=== PATIENT | male | born 1970 | race Caucasian/White ===

== ENCOUNTER 2017-11-04 22:01 | Observation (INO) ==
[2017-11-04 22:34] LABS: Basophils # 0.1 K/mm3 (0-0.2); Basophils % 0.5 % (0.1-2.0); Eosinophils # 0.4 K/mm3 (0.0-0.4); Hematocrit 52.2 % (42.0-52.0); Hemoglobin 16.1 g/dL (14.1-18.0); Lymphocytes # 3.7 K/mm3 (0.7-4.5); Lymphocytes % 17.1 K/mm3 (10-50); Mean Corpuscular HGB Conc 30.8 g/dL (31.8-35.4); Mean Corpuscular Hemoglobin 29.2 pg (27.0-31.2); Mean Corpuscular Volume 94.6 fl (80-94); Mean Platelet Volume 7.8 fl (7.4-10.4); Monocytes # 0.7 K/mm3 (0.1-1.0); Monocytes % 3.4 % (1.7-9.3); Neutrophils # 16.4 K/mm3 (1.8-7.8); Neutrophils % 76.9 % (37.0-80.0); Platelet Count 435 K/mm3 (142-424); Red Blood Count 5.52 M/mm3 (4.60-6.20); Red Cell Distribution Width 12.6 % (11.5-17.5)
[2017-11-04 22:38] LABS: White Blood Count 21.3 K/mm3 (4.8-10.8)
[2017-11-04 22:45] LABS: Lymphocytes % 12 % (10-50); Monocytes % 1 % (2-9); Neutrophils % 78 % (42-76); Total Cells Counted 100
[2017-11-04 22:46] LABS: Albumin Level 3.8 gm/dL (3.4-5.0); Albumin/Globulin Ratio 0.7 (1.1-1.8); Anion Gap 13.3 mEq/L (5-15); Bilirubin,Total 0.2 mg/dL (0.2-1.0); Calcium 9.8 mg/dL (8.5-10.1); Globulin 5.3 gm/dl (1.3-3.2); Potassium 4.3 mmoL/L (3.5-5.1); Rouleaux 1+; Total Protein,Serum 9.1 gm/dL (6.4-8.2)
--- NOTE | 2017-11-04 23:44 | Emergency Department Note ---
ED Disposition Clinical Impression: IVDU (intravenous drug user) Abscess of skin or subcutaneous tissue Qualifiers: Site of cutaneous abscess: extremity Site of cutaneous abscess of extremity: upper extremity Laterality: right Qualified Code(s): L02.413 - Cutaneous abscess of right upper limb Disposition: Admitted as Observation Condition on Discharge: Good Instructions: DI for Skin Abscess - Critical Care Critical Care Time: No Attestation: On 11/04/17, the high probability of a clinically significant, sudden or life threatening deterioration of the following system(s) required my full and direct attention, intervention and personal management. The time I documented below is in addition to time spent performing reported procedures but includes the following listed in this critical care notation. Medical Decision Making - Medical Records Medical records reviewed: Yes: I reviewed the patient's medical records. - Jeremy Inquiry Pt receiving controlled substance: No Vital Signs: 11/04/17 22:10 Temperature 98.7 F Temperature Source Oral Pulse Rate [Right Radial] 103 H Respiratory Rate 20 Blood Pressure [Right Arm] 122/83 Blood Pressure Mean [Right Arm] 96 02 Sat by Pulse Oximetry 99 - Lab Data Lab results reviewed: Yes: I reviewed the patient's lab results. Lab Results 11/04/17 22:20: WBC 21.3 H*, RBC 5.52, Hgb 16.1, Hct 52.2 H, MCV 94.6 H, MCH 29.2, MCHC 30.8 L, RDW 12.6, Plt Count 435 H, MPV 7.8, Neut % (Auto) 76.9, Lymph % (Auto) 17.1, [place] % (Auto) 3.4, Eos % (Auto) 2.0, Baso % (Auto) 0.5, Neut # (Auto) 16.4 H, Lymph # (Auto) 3.7, [place] # (Auto) 0.7, Eos # (Auto) 0.4, Baso # (Auto) 0.1, Total Counted 100, Neutrophils % (Manual) 78 H, Band Neutrophils % 9.0 H, Lymphocytes % (Manual) 12, Monocytes % (Manual) 1 L, Platelet Estimate Normal, Rouleaux 1+ 11/04/17 22:20: Sodium 141, Potassium 4.3, Chloride 103, Carbon Dioxide 29, Anion Gap 13.3, BUN 9, Creatinine 0.89, Estimated Creat Clear 89, Estimated GFR 92, Est GFR ( Amer) 111, Glucose 105, Calcium 9.8, Total Bilirubin 0.2, AST 33, ALT 39, Alkaline Phosphatase 154 H, Total Protein 9.1 H, Albumin 3.8, Globulin 5.3 H, Albumin/Globulin Ratio 0.7 L 11/04/17 22:20: Lactic Acid 4.1 H 11/04/17 22:20: C-Reactive Protein 1.2 H Result diagrams: 11/04/17 22:20 11/04/17 22:20 Orders (Tests/Meds): ED MEDICATIONS Generic Name Dose Route Start Last Admin Trade Name Freq PRN Reason Stop Dose Admin Vancomycin HCl 1,250 mg/ 250 mls @ 125 mls/hr 11/05/17 00:12 Sodium Chloride IV 11/05/17 00:13 ONCE ONE Protocol Discontinued Medications Generic Name Dose Route Start Last Admin Trade Name Freq PRN Reason Stop Dose Admin Sodium Chloride 1,000 mls @ 999 mls/hr 11/04/17 22:15 11/04/17 22:17 Sod Chlor 0.9% 1000ml Bag IV 11/04/17 23:15 999 mls/hr .[id number] ONEIL Administration ORDERS Category Date Time Status ESR [Erythrocyte Sedimentation Rate] Stat Lab 11/04/17 22:20 Received Blood Culture Stat Micro 11/04/17 22:20 Received - Physician Consults Physician Consulted: cece Reason -: Admission Skin/Abscess/FB HPI - General Chief complaint: Skin/Abscess/Foreign Body Stated complaint: Right arm swollen Time Seen by Provider: 11/04/17 22:20 Mode of Arrival: Family Vehicle Limitations: No Limitations Description of Symptoms (Recalled from ER Triage Doc. by RN): pt shot up 3 days ago with percocets, pt now having swelling and pain in right forearm at site that began swelling 2 days ago. - History of Present Illness HPI narrative: swelling tenderness rt forearm over the last few days - hx of iv drug use MD complaint: abscess/boil Onset (ago): day(s) Tetanus up to date: unsure Location: RUE Severity: moderate Quality: dull Context: IVDA Associated symptoms: chills, myalgias Treatments prior to arrival: none - Related Data Home Medications Medication Instructions Recorded Confirmed No Known Home Medications 11/04/17 11/04/17 Allergies Allergy/AdvReac Type Severity Reaction Status Date / Time No Known Allergies Allergy Unverified 05/15/17 15:04 [facility] History I have reviewed the patient's past medical history: Yes Medical History: Denies:: Cancer, Diabetes Mellitus Type 1, Diabetes Mellitus Type 2, MRSA Amputation: No Fractures: No - Social History Smoking Status: Current every day smoker Alcohol Intake: never Substance Use Type: opiates Last Used Substance: days (ago) - Psychiatric History Expresses thoughts of harming self/others: None Suicide Plan Description: No Plan ROS Obtained: Yes All systems reviewed & no additional complaints - Constitutional Constitutional: Denies fever(s) - Eyes Eyes: Denies change in vision - ENT Ears, Nose, Mouth, and Throat: Denies sore throat - Cardiovascular Cardiovascular: Denies chest pain - Respiratory Respiratory: No cough - Gastrointestinal Gastrointestingal: Denies: abdominal pain - Genitourinary Male Genitourinary: Denies flank pain, Denies hematuria - Musculoskeletal Musculoskeletal: Denies joint pain, Denies joint swelling - Integumentary/Breasts Skin/Breast: Reports boil - Neurologic Neurologic: Denies headache(s), Denies seizure-like activity Physical Exam - General General appearance: alert, in no apparent distress - Head Head exam: normocephalic - Eye Eye exam: Present: PERRL, EOMI - ENT ENT exam: Present: mucous membranes moist - Neck Neck exam: Present: trachea midline - Respiratory Respiratory exam: Absent: respiratory distress - Cardiovascular Cardiovascular exam: Present: regular rate, systolic murmur - Abdominal Exam Abdominal exam: Present: soft - Neurological Exam Neurological exam: Present: alert, oriented X3, CN II-XII intact - Psychiatric Psychiatric exam: Present: normal affect - Skin Skin exam: Present: other (tender area rt forearm)
[2017-11-05 06:45] LABS: Basophils # 0.1 K/mm3 (0-0.2); Eosinophils # 0.5 K/mm3 (0.0-0.4); Mean Platelet Volume 8.1 fl (7.4-10.4); Monocytes # 0.8 K/mm3 (0.1-1.0); Monocytes % 4.4 % (1.7-9.3)
[2017-11-05 06:50] LABS: Basophils % 0.5 % (0.1-2.0); Eosinophils % 2.5 % (0.1-12.0); Lymphocytes # 3.6 K/mm3 (0.7-4.5); Lymphocytes % 19.7 K/mm3 (10-50); Mean Corpuscular HGB Conc 31.4 g/dL (31.8-35.4); Mean Corpuscular Hemoglobin 29.7 pg (27.0-31.2); Mean Corpuscular Volume 94.4 fl (80-94); Neutrophils # 13.4 K/mm3 (1.8-7.8); Neutrophils % 72.9 % (37.0-80.0); Platelet Count 328 K/mm3 (142-424); Red Blood Count 4.45 M/mm3 (4.60-6.20); Red Cell Distribution Width 12.8 % (11.5-17.5); White Blood Count 18.3 K/mm3 (4.8-10.8)
[2017-11-05 06:51] LABS: Hemoglobin 13.2 g/dL (14.1-18.0)
[2017-11-05 07:12] LABS: Calcium 8.6 mg/dL (8.5-10.1)
--- NOTE | 2017-11-05 07:13 | History & Physical Report ---
*Admission Date: 11/05/17 *Chief complaint: Right arm pain *History of present illness: 47-year-old male with admitting only injects heroin presented to the emergency department with pain and swelling in the right forearm. Patient was diagnosed with cellulitis and abscess of the forearm and has been admitted for IV antibiotics and surgical consultation. [facility] History I have reviewed the patient's past medical history: Yes Medical History: Denies:: Cancer, Diabetes Mellitus Type 1, Diabetes Mellitus Type 2, MRSA Other Medical History: Reports: Arthritis Other Surgeries: Yes: Other (L finger/hand surgery) Amputation: No Fractures: No - *Social History Educational Level: Completed High School Smoking Status: Current every day smoker Tobacco Type: cigarettes # Packs/Day (cigarettes): 1 #Yrs smoked (if former smoker): 31 Alcohol Intake: never Substance Use Type: opiates, painkillers, IV drugs Last Used Substance: days (ago) Occupational Status: employed Housing: house Household Members: none - Psychiatric History Expresses thoughts of harming self/others: None Suicide Plan Description: No Plan *Family Hx:: Asthma, Cancer Review of Systems - Review of Systems Review of systems:: pertinent systems reviewed and negative unless documented below - Constitutional Denies anorexia, Denies body ache(s), Denies chills, Denies excessive sweating, Denies fever(s) - *Cardiovascular Denies chest pain, Denies chest pain at rest, Denies chest pain with activity - *Respiratory Denies change in phlegm color, Denies chest congestion, Denies cough - *Neurologic Denies headache(s), Denies seizure-like activity Meds Home Medications Medication Instructions Recorded Confirmed Type No Known Home Medications 11/04/17 11/04/17 History Allergies Allergy/AdvReac Type Severity Reaction Status Date / Time No Known Allergies Allergy Unverified 05/15/17 15:04 Exam Vital signs and Labs for Last 24 Hours: Temp Pulse Resp BP Pulse Ox 98.1 F 79 18 103/62 99 11/05/17 04:08 11/05/17 04:08 11/05/17 04:08 11/05/17 04:08 11/05/17 04:08 Laboratory Results - last 24 hr 11/04/17 22:20: WBC 21.3 H*, RBC 5.52, Hgb 16.1, Hct 52.2 H, MCV 94.6 H, MCH 29.2, MCHC 30.8 L, RDW 12.6, Plt Count 435 H, MPV 7.8, Neut % (Auto) 76.9, Lymph % (Auto) 17.1, [place] % (Auto) 3.4, Eos % (Auto) 2.0, Baso % (Auto) 0.5, Neut # (Auto) 16.4 H, Lymph # (Auto) 3.7, [place] # (Auto) 0.7, Eos # (Auto) 0.4, Baso # (Auto) 0.1, Total Counted 100, Neutrophils % (Manual) 78 H, Band Neutrophils % 9.0 H, Lymphocytes % (Manual) 12, Monocytes % (Manual) 1 L, Platelet Estimate Normal, Rouleaux 1+ 11/04/17 22:20: Sodium 141, Potassium 4.3, Chloride 103, Carbon Dioxide 29, Anion Gap 13.3, BUN 9, Creatinine 0.89, Estimated Creat Clear 89, Estimated GFR 92, Est GFR ( Amer) 111, Glucose 105, Calcium 9.8, Total Bilirubin 0.2, AST 33, ALT 39, Alkaline Phosphatase 154 H, Total Protein 9.1 H, Albumin 3.8, Globulin 5.3 H, Albumin/Globulin Ratio 0.7 L 11/04/17 22:20: Lactic Acid 4.1 H 11/04/17 22:20: ESR 35 H 11/04/17 22:20: C-Reactive Protein 1.2 H 11/05/17 02:40: Lactic Acid Fup @ 4Hr 0.6 11/05/17 06:16: Sodium 139, Potassium 4.0, Chloride 107, Carbon Dioxide 26, Anion Gap 10.0, BUN 10, Creatinine 0.77, Estimated Creat Clear 92, Estimated GFR 108, Est GFR ( Amer) 131, Glucose 102 11/05/17 06:16: WBC 18.3 H, RBC 4.45 L, Hgb 13.2 L D, Hct 42.0, MCV 94.4 H, MCH 29.7, MCHC 31.4 L, RDW 12.8, Plt Count 328, MPV 8.1, Neut % (Auto) 72.9, Lymph % (Auto) 19.7, [place] % (Auto) 4.4, Eos % (Auto) 2.5, Baso % (Auto) 0.5, Neut # ( Auto) 13.4 H, Lymph # (Auto) 3.6, [place] # (Auto) 0.8, Eos # (Auto) 0.5 H, Baso # (Auto) 0.1 I & O for Last 24 hours: Intake & Output 11/02/17 11/03/17 11/04/17 11/05/17 11:59 11:59 11:59 11:59 Intake Total 1556 / 1556 Output Total 600 / 600 Balance 956 / 956 Weight 121 lb 3.997 oz Narrative: He is in no distress. Lungs are clear to auscultation. Heart has a regular rate and rhythm. On the anterior right forearm there is a tense, fluctuant, tender mass that starts in the medial proximal forearm and extends to the medial elbow. There is very little erythema of the skin H&P: Result - Labs Labs: Short CBC 11/04/17 11/05/17 Range/Units 22:20 06:16 WBC 21.3 H* 18.3 H (4.8-10.8) K/mm3 Hgb 16.1 13.2 L D (14.1-18.0) g/dL Hct 52.2 H 42.0 (42.0-52.0) % Plt Count 435 H 328 (142-424) K/mm3 BMP 11/04/17 11/05/17 22:20 06:16 Sodium 141 139 Potassium 4.3 4.0 Chloride 103 107 Carbon Dioxide 29 26 BUN 9 10 Creatinine 0.89 0.77 Glucose 105 102 Calcium 9.8 Liver Function 11/04/17 Range/Units 22:20 Total Bilirubin 0.2 (0.2-1.0) mg/dL AST 33 (15-37) U/L ALT 39 (12-78) U/L Alkaline Phosphatase 154 H (46-116) U/L Albumin 3.8 (3.4-5.0) gm/dL Assessment and Plan (1) Abscess of forearm, right Current visit: Yes Status: Acute Category: Medical Code(s): L02.413 - Cutaneous abscess of right upper limb (2) IVDU (intravenous drug user) Current visit: Yes Status: Acute Category: Social Hx Code(s): F19.90 - Other psychoactive substance use, unspecified, uncomplicated - Assessment and plan all Dx Assessment and Plan for all problems:: Patient was started on vancomycin and will continue this. Surgical consultation for I&D.
--- NOTE | 2017-11-05 07:29 | Pharmacy Consult Notes ---
[facility] Pharmacy VTE Monitoring - Patient Demographics Admission date: 11/04/17 Report Date: 11/05/17 Time: 07:28 Allergies/Adverse Reactions: Patient Allergies No Known Allergies Allergy (Unverified 05/15/17 15:04) Height: 1.7 m Weight: 54.998 kg Patient Problems: Current Active Problems Abscess of skin or subcutaneous tissue (Acute) IVDU (intravenous drug user) (Acute) Abscess of forearm, right (Acute) - VTE Risk Labs: VTE Related Lab Results Hgb 13.2 g/dL (14.1-18.0) L D 11/05/17 06:16 Hct 42.0 % (42.0-52.0) 11/05/17 06:16 Plt Count 328 K/mm3 (142-424) 11/05/17 06:16 BUN 10 mg/dL (7-18) 11/05/17 06:16 Creatinine 0.77 mg/dL (0.70-1.30) 11/05/17 06:16 Estimated Creat Clear 92 mL/min (0-300) 11/05/17 06:16 Was VTE Risk Assessment Performed: Yes VTE Score: 3 VTE Risk Level: Low Risk - Prophylaxis VTE Prophylaxis Ordered?: Yes Types of VTE Prophylaxis: TEDS Knee High Location of Applied Device: Bilateral Lower Extremeties - VTE Diagnosis Confirmed Treatment or plan recommended: Continue Current Treatment
--- NOTE | 2017-11-05 08:36 | Consult Report ---
*Admission Date: 11/04/17 *Chief complaint: Right arm pain *History of present illness: 47-year-old male with admittedly injects heroin presented to the emergency department with pain and swelling in the right forearm. Patient was diagnosed with cellulitis and abscess of the forearm and has been admitted for IV antibiotics and surgical consultation. He has been present about 3 or 4 days. Denies any drainage. Review of Systems - Review of Systems Review of systems:: pertinent systems reviewed and negative unless documented below - *Neurologic Denies headache(s), Denies seizure-like activity [facility] History Medical History: Denies:: Cancer, Diabetes Mellitus Type 1, Diabetes Mellitus Type 2, MRSA Other Medical History: Reports: Arthritis Other Surgeries: Yes: Other (L finger/hand surgery) Amputation: No Fractures: No - *Social History Educational Level: Completed High School Smoking Status: Current every day smoker Tobacco Type: cigarettes # Packs/Day (cigarettes): 1 #Yrs smoked (if former smoker): 31 Alcohol Intake: never Substance Use Type: opiates, painkillers, IV drugs Last Used Substance: days (ago) Occupational Status: employed Housing: house Household Members: none - Psychiatric History Expresses thoughts of harming self/others: None Suicide Plan Description: No Plan *Family Hx:: Asthma, Cancer Meds Home Medications Medication Instructions Recorded Confirmed Type No Known Home Medications 11/05/17 11/05/17 History Allergies Allergy/AdvReac Type Severity Reaction Status Date / Time No Known Allergies Allergy Unverified 05/15/17 15:04 Exam Vital signs and Labs for Last 24 Hours: Temp Pulse Resp BP Pulse Ox 98.0 F 48 L 16 105/56 98 11/05/17 07:55 11/05/17 07:55 11/05/17 07:55 11/05/17 07:55 11/05/17 07:55 Laboratory Results - last 24 hr 11/04/17 22:20: WBC 21.3 H*, RBC 5.52, Hgb 16.1, Hct 52.2 H, MCV 94.6 H, MCH 29.2, MCHC 30.8 L, RDW 12.6, Plt Count 435 H, MPV 7.8, Neut % (Auto) 76.9, Lymph % (Auto) 17.1, [place] % (Auto) 3.4, Eos % (Auto) 2.0, Baso % (Auto) 0.5, Neut # (Auto) 16.4 H, Lymph # (Auto) 3.7, [place] # (Auto) 0.7, Eos # (Auto) 0.4, Baso # (Auto) 0.1, Total Counted 100, Neutrophils % (Manual) 78 H, Band Neutrophils % 9.0 H, Lymphocytes % (Manual) 12, Monocytes % (Manual) 1 L, Platelet Estimate Normal, Rouleaux 1+ 11/04/17 22:20: Sodium 141, Potassium 4.3, Chloride 103, Carbon Dioxide 29, Anion Gap 13.3, BUN 9, Creatinine 0.89, Estimated Creat Clear 89, Estimated GFR 92, Est GFR ( Amer) 111, Glucose 105, Calcium 9.8, Total Bilirubin 0.2, AST 33, ALT 39, Alkaline Phosphatase 154 H, Total Protein 9.1 H, Albumin 3.8, Globulin 5.3 H, Albumin/Globulin Ratio 0.7 L 11/04/17 22:20: Lactic Acid 4.1 H 11/04/17 22:20: ESR 35 H 11/04/17 22:20: C-Reactive Protein 1.2 H 11/05/17 02:40: Lactic Acid Fup @ 4Hr 0.6 11/05/17 06:16: Sodium 139, Potassium 4.0, Chloride 107, Carbon Dioxide 26, Anion Gap 10.0, BUN 10, Creatinine 0.77, Estimated Creat Clear 92, Estimated GFR 108, Est GFR ( Amer) 131, Glucose 102, Calcium 8.6 D 11/05/17 06:16: WBC 18.3 H, RBC 4.45 L, Hgb 13.2 L D, Hct 42.0, MCV 94.4 H, MCH 29.7, MCHC 31.4 L, RDW 12.8, Plt Count 328, MPV 8.1, Neut % (Auto) 72.9, Lymph % (Auto) 19.7, [place] % (Auto) 4.4, Eos % (Auto) 2.5, Baso % (Auto) 0.5, Neut # ( Auto) 13.4 H, Lymph # (Auto) 3.6, [place] # (Auto) 0.8, Eos # (Auto) 0.5 H, Baso # (Auto) 0.1 I & O for Last 24 hours: Intake & Output 11/02/17 11/03/17 11/04/17 11/05/17 11:59 11:59 11:59 11:59 Intake Total 1556 / 1556 Output Total 600 / 600 Balance 956 / 956 Weight 121 lb 3.997 oz - Constitutional no acute distress - *Routine Respiratory Exam Present: CTA bilaterally - *Routine Cardiovascular Exam Present: RRR - *Routine Extremities Exam Comments: On the right anterior forearm there is an area of induration and tenderness measuring about 3 or 4 cm. No fluctuance. Minimal erythema. Multiple needle tracks. Results - Labs 11/05/17 06:16 11/05/17 06:16 Laboratory Results - last 24 hr 11/04/17 22:20: WBC 21.3 H*, RBC 5.52, Hgb 16.1, Hct 52.2 H, MCV 94.6 H, MCH 29.2, MCHC 30.8 L, RDW 12.6, Plt Count 435 H, MPV 7.8, Neut % (Auto) 76.9, Lymph % (Auto) 17.1, [place] % (Auto) 3.4, Eos % (Auto) 2.0, Baso % (Auto) 0.5, Neut # (Auto) 16.4 H, Lymph # (Auto) 3.7, [place] # (Auto) 0.7, Eos # (Auto) 0.4, Baso # (Auto) 0.1, Total Counted 100, Neutrophils % (Manual) 78 H, Band Neutrophils % 9.0 H, Lymphocytes % (Manual) 12, Monocytes % (Manual) 1 L, Platelet Estimate Normal, Rouleaux 1+ 11/04/17 22:20: Sodium 141, Potassium 4.3, Chloride 103, Carbon Dioxide 29, Anion Gap 13.3, BUN 9, Creatinine 0.89, Estimated Creat Clear 89, Estimated GFR 92, Est GFR ( Amer) 111, Glucose 105, Calcium 9.8, Total Bilirubin 0.2, AST 33, ALT 39, Alkaline Phosphatase 154 H, Total Protein 9.1 H, Albumin 3.8, Globulin 5.3 H, Albumin/Globulin Ratio 0.7 L 11/04/17 22:20: Lactic Acid 4.1 H 11/04/17 22:20: ESR 35 H 11/04/17 22:20: C-Reactive Protein 1.2 H 11/05/17 02:40: Lactic Acid Fup @ 4Hr 0.6 11/05/17 06:16: Sodium 139, Potassium 4.0, Chloride 107, Carbon Dioxide 26, Anion Gap 10.0, BUN 10, Creatinine 0.77, Estimated Creat Clear 92, Estimated GFR 108, Est GFR ( Amer) 131, Glucose 102, Calcium 8.6 D 11/05/17 06:16: WBC 18.3 H, RBC 4.45 L, Hgb 13.2 L D, Hct 42.0, MCV 94.4 H, MCH 29.7, MCHC 31.4 L, RDW 12.8, Plt Count 328, MPV 8.1, Neut % (Auto) 72.9, Lymph % (Auto) 19.7, [place] % (Auto) 4.4, Eos % (Auto) 2.5, Baso % (Auto) 0.5, Neut # ( Auto) 13.4 H, Lymph # (Auto) 3.6, [place] # (Auto) 0.8, Eos # (Auto) 0.5 H, Baso # (Auto) 0.1 Assessment and Plan (1) Abscess of forearm, right Current visit: Yes Status: Acute Category: Medical Code(s): L02.413 - Cutaneous abscess of right upper limb (2) IVDU (intravenous drug user) Current visit: Yes Status: Acute Category: Social Hx Code(s): F19.90 - Other psychoactive substance use, unspecified, uncomplicated - Assessment and plan all Dx Assessment and Plan for all problems:: Plan for incision and drainage in the operating room later today.
--- NOTE | 2017-11-05 11:33 | Operative Note ---
Date of procedure: 11/05/17 Pre-op Diagnosis:: Right forearm abscess Post-op Diagnosis:: Same Procedure performed:: Incision and drainage of deep abscess from right forearm Surgeon:: Alirio Marin MD [employer]:: Alli Cooper Anesthesia: LMA Estimated blood loss (mL): 10 Clinical Note:: Patient is a 47-year-old white male with admitted history of IV drug abuse. He states that about 3 or 4 days he began developing a swelling tender knot in the right forearm area. He presented to the emergency department overnight and was admitted for inpatient management for intravenous antibiotics and surgical consultation for incision and drainage. Operative findings:: Evidence of abscess around the vein without suppurative thrombophlebitis. Abscess was rather deep with thick pus. Operative note:: Consent was obtained. Patient was taken the operating room. General anesthesia was induced Via [place]. Right upper extremity was prepped and draped in the standard surgical fashion. 18-gauge needle was inserted at the site of induration. Several cc of thick pus aspirated. This was sent for cultures. Incision was made at this site and dissection was carried down to the abscess pocket was then probed with a hemostat. There was some additional thick pus which exuded from the wound. Abscess was probed and opened longitudinally. Deep within the abscess cavity there was a prominent vein which likely was basilic vein. Overall length of the incision was approximately 5 cm. Wound was thoroughly irrigated. Hemostasis was achieved electrocautery. Local anesthetic was infiltrated. Incision was loosely packed with moistened saline gauze and covered with clean dry sterile dressing. Condition: stable Disposition: PACU Specimens:: Cultures Complications:: None immediately apparent
--- NOTE | 2017-11-05 11:40 | Progress Note ---
[facility] Anesthesia Record Part II Discharge Time: 12:00 Destination: [facility] PACU nurse assessment reviewed?: Yes Patient Condition:: Good Anesthesia Complications:: None
--- NOTE | 2017-11-05 11:40 | Progress Note ---
[facility] Anesthesia Checklist - Patient Identification Patient Identification: Arm Band - Structural Data Admitted From: Inpatient Planned Operative Procedure/s: I&D right arm abcess Consent for Planned Operative Procedure(s) Verified: Yes Verified Documents: Surgical Consent, History and Physical - NPO Status Verified Time NPO: 00:00 - Additional verifications Anesthesia Reactions: No - Airway Assessment C-Spine Mobility Assessed: Yes (mp2) TMJ Mobility Assessed: Yes Dentition: Poor Dentition - Neurological Assessment Level of Consciousness: Awake, Alert - Anesthesia Plan Anesthesia Risk discussed: Yes Anesthesia Plan: Verified ASA Class: II Anesthesia Type: General [facility] Anesthesia HX I have reviewed the patient's past medical history: Yes Medical History: Denies:: Cancer, Diabetes Mellitus Type 1, Diabetes Mellitus Type 2, MRSA Other Medical History: Reports: Arthritis Other Surgeries: Yes: Other (L finger/hand surgery) Amputation: No Fractures: No *Family Hx:: Asthma, Cancer
--- NOTE | 2017-11-05 11:40 | Progress Note ---
[facility] Anesthesia Record Part I Intake, IV Amount: 500 Estimated blood loss (mL): 5 Urine output (mL): 0 Blood Pressure: 82/54 SaO2: 96 Pulse Rate: 66 Respiratory Rate: 16 Temperature: 98.2 F Patient is:: Drowsy, Stable Stable to PACU at:: 11:30
[2017-11-06 06:00] LABS: Basophils # 0.1 K/mm3 (0-0.2); Basophils % 0.8 % (0.1-2.0); Eosinophils # 0.5 K/mm3 (0.0-0.4); Eosinophils % 4.1 % (0.1-12.0); Hematocrit 39.9 % (42.0-52.0); Hemoglobin 12.3 g/dL (14.1-18.0); Lymphocytes # 3.3 K/mm3 (0.7-4.5); Lymphocytes % 27.7 K/mm3 (10-50); Mean Corpuscular HGB Conc 30.8 g/dL (31.8-35.4); Mean Corpuscular Hemoglobin 29.4 pg (27.0-31.2); Mean Corpuscular Volume 95.5 fl (80-94); Mean Platelet Volume 7.8 fl (7.4-10.4); Monocytes # 0.6 K/mm3 (0.1-1.0); Monocytes % 5.3 % (1.7-9.3); Neutrophils # 7.5 K/mm3 (1.8-7.8); Neutrophils % 62.2 % (37.0-80.0); Platelet Count 269 K/mm3 (142-424); Red Blood Count 4.18 M/mm3 (4.60-6.20); Red Cell Distribution Width 12.8 % (11.5-17.5)
--- NOTE | 2017-11-06 06:49 | Progress Note ---
Internal Medicine - PN: Subj *Date: 11/06/17 *Time: 06:47 Interval history: Patient complains of right arm soreness after undergoing I&D of right forearm abscess yesterday Exam Vital signs and Labs for Last 24 Hours: Temp Pulse Resp BP Pulse Ox 97.8 F 63 18 114/72 99 11/06/17 04:00 11/06/17 04:00 11/06/17 04:00 11/06/17 04:00 11/06/17 04:00 Laboratory Results - last 24 hr 11/05/17 06:16: Sodium 139, Potassium 4.0, Chloride 107, Carbon Dioxide 26, Anion Gap 10.0, BUN 10, Creatinine 0.77, Estimated Creat Clear 92, Estimated GFR 108, Est GFR ( Amer) 131, Glucose 102, Calcium 8.6 D 11/05/17 06:16: WBC 18.3 H, RBC 4.45 L, Hgb 13.2 L D, Hct 42.0, MCV 94.4 H, MCH 29.7, MCHC 31.4 L, RDW 12.8, Plt Count 328, MPV 8.1, Neut % (Auto) 72.9, Lymph % (Auto) 19.7, [place] % (Auto) 4.4, Eos % (Auto) 2.5, Baso % (Auto) 0.5, Neut # ( Auto) 13.4 H, Lymph # (Auto) 3.6, [place] # (Auto) 0.8, Eos # (Auto) 0.5 H, Baso # (Auto) 0.1 11/06/17 05:20: WBC 12.0 H D, RBC 4.18 L, Hgb 12.3 L, Hct 39.9 L, MCV 95.5 H, MCH 29.4, MCHC 30.8 L, RDW 12.8, Plt Count 269, MPV 7.8, Neut % (Auto) 62.2, Lymph % (Auto) 27.7, [place] % (Auto) 5.3, Eos % (Auto) 4.1, Baso % (Auto) 0.8, Neut # (Auto) 7.5, Lymph # (Auto) 3.3, [place] # (Auto) 0.6, Eos # (Auto) 0.5 H, Baso # (Auto) 0.1 I & O for Last 24 hours: Intake & Output 11/03/17 11/04/17 11/05/17 11/06/17 11:59 11:59 11:59 11:59 Intake Total 2056 / 2056 2999 / 2999 Output Total 1350 / 1350 Balance 706 / 706 2999 / 2999 Weight 121 lb 3.997 oz Microbiology Reports for the Last 24 Hours: Microbiology 11/05/17 Unknown Arm,Right Gram Stain - Final Narrative: Patient looks well and in no distress. Lungs are clear to auscultation. Heart has a regular rate and rhythm. Right forearm is bandaged. There is less swelling around the medial elbow. I did not remove the rest of the dressing. Assessment and Plan (1) Abscess of forearm, right Current visit: Yes Status: Acute Category: Medical Code(s): L02.413 - Cutaneous abscess of right upper limb (2) IVDU (intravenous drug user) Current visit: Yes Status: Acute Category: Social Hx Code(s): F19.90 - Other psychoactive substance use, unspecified, uncomplicated - Assessment and plan all Dx Assessment and Plan for all problems:: Patient is doing well status post I&D of right forearm abscess. White blood cell count has trended down. Anticipate discharge today. Care of wound and follow-up per Dr. Marin's instructions.
--- NOTE | 2017-11-06 07:08 | Discharge Summary ---
General - General Admission date:: 11/05/17 Discharge date: 11/06/17 HPI HPI: 47-year-old male with admittedly injects heroin presented to the emergency department with pain and swelling in the right forearm. Patient was diagnosed with cellulitis and abscess of the forearm and has been admitted for IV antibiotics and surgical consultation. He has been present about 3 or 4 days. Denies any drainage. Hospital Course Hospital Course: Patient was admitted on November [address] Marin. Cultures were performed during surgery. At the time of this dictation results are not available yet. There is improvement in pain as well as erythema after I&D. Patient was maintained on vancomycin. White blood cell count trended down. On the patient was doing well. Evaluation of the wound by Dr. Marin revealed some faint cellulitis but overall improvement. Patient was discharged home. He will continue to take Bactrim DS twice daily. He will return daily for dressing changes and reinspection of the wound by Dr. Marin. Objective Vital signs: Temp Pulse Resp BP Pulse Ox 97.8 F 63 18 114/72 99 11/06/17 04:00 11/06/17 04:00 11/06/17 04:00 11/06/17 04:00 11/06/17 04:00 Results Labs on day of discharge: Labs from last 24 hours 11/06/17 11/05/17 05:20 06:16 WBC 12.0 H D RBC 4.18 L Hgb 12.3 L Hct 39.9 L MCV 95.5 H MCH 29.4 MCHC 30.8 L RDW 12.8 Plt Count 269 MPV 7.8 Neut % (Auto) 62.2 Lymph % (Auto) 27.7 [place] % (Auto) 5.3 Eos % (Auto) 4.1 Baso % (Auto) 0.8 Neut # (Auto) 7.5 Lymph # (Auto) 3.3 [place] # (Auto) 0.6 Eos # (Auto) 0.5 H Baso # (Auto) 0.1 Calcium 8.6 D DS: Diagnosis - Discharge Diagnosis (1) Abscess of forearm, right Status: Acute (2) IVDU (intravenous drug user) Status: Acute Discharge Plan - Patient Discharge Instructions ACTIVITY: Continue current activity DIET: continue same diet - Follow up Plan Follow up with: Allran,Alirio, MD [Staff Physician] - (Dr. Marin will see the patient during dressing changes) Disposition: Home, Self-Care Prescriptions/Medication Reconciliation: No Action No Known Home Medications
--- NOTE | 2017-11-06 07:17 | Progress Note ---
Subjective Narrative: Patient has some stinging pain at the operative site. However, he does state that he is now able to fully extend his arm. Exam Vital signs and Labs for Last 24 Hours: Temp Pulse Resp BP Pulse Ox 97.8 F 63 18 114/72 99 11/06/17 04:00 11/06/17 04:00 11/06/17 04:00 11/06/17 04:00 11/06/17 04:00 Laboratory Results - last 24 hr 11/06/17 05:20: WBC 12.0 H D, RBC 4.18 L, Hgb 12.3 L, Hct 39.9 L, MCV 95.5 H, MCH 29.4, MCHC 30.8 L, RDW 12.8, Plt Count 269, MPV 7.8, Neut % (Auto) 62.2, Lymph % (Auto) 27.7, [place] % (Auto) 5.3, Eos % (Auto) 4.1, Baso % (Auto) 0.8, Neut # (Auto) 7.5, Lymph # (Auto) 3.3, [place] # (Auto) 0.6, Eos # (Auto) 0.5 H, Baso # (Auto) 0.1 I & O for Last 24 hours: Intake & Output 11/03/17 11/04/17 11/05/17 11/06/17 11:59 11:59 11:59 11:59 Intake Total 2056 / 2056 2999 / 2999 Output Total 1350 / 1350 Balance 706 / 706 2999 / 2999 Weight 121 lb 3.997 oz Microbiology Reports for the Last 24 Hours: Microbiology 11/05/17 Unknown Arm,Right Gram Stain - Final - *Routine Extremities Exam Comments: Wound is clean with no necrosis or evidence of any purulence. There is some proximal erythema and very mild edema. Progress Note: A&P (1) Abscess of forearm, right Status: Acute Current Visit: Yes (2) IVDU (intravenous drug user) Status: Acute Current Visit: Yes Assessment and Plan for All Diagnoses:: Reasonable to discharge home with outpatient oral antibiotics and outpatient wound care. Plan for initially once daily saline moistened packing to be done through outpatient. I will follow him up the bare and check his wound in the next 24-48 hours and check the status of his cultures.
[2017-11-06 07:28] VITALS: BP 112/70
== END 2017-11-06 08:46 | disposition home or self-care (01) ==
LOC: 2ND 22:01 → ER 22:01 → 2ND 11-05 00:40
PROVIDERS: ADMIT Family Medicine; ATTEND Family Medicine

== ENCOUNTER 2020-05-09 09:34 | Inpatient (IN) | payer MEDICAID, SELFPAY ==
[2020-05-09] VITALS (12 sets, daily range): BP systolic 106–142; BP diastolic 53–74; PULSE 99–136; RESP 17–28; TEMP 36.4–38.8; O2SAT 91–98; BMI 21.1; BMI 18.5
--- NOTE | 2020-05-09 09:34 | ECG_ITS ---
APPROVED REPORT Exam: Resting ECG HR:132 bpm ECG Measurements Heart Rate 132 AXES WI 128 P 68 QRSd 76 QRS 67 QT 282 T 56 QTc 417 Conclusion Sinus tachycardia Otherwise normal ECG Electronically signed by : Nabil Hendrix, 05/09/2020 18:30:32
--- NOTE | 2020-05-09 09:45 | HMH.EDGENADL ---
ED Disposition Clinical Impression: COVID-19 Sepsis Qualifiers: Sepsis type: sepsis due to unspecified organism Sepsis acute organ dysfunction status: unspecified Qualified Code(s): A41.9 - Sepsis, unspecified organism Disposition: Admitted As Inpatient Condition on Discharge: [facility] Critical Care Critical Care Time: No Attestation: On 05/09/20, the high probability of a clinically significant, sudden or life threatening deterioration of the following system(s) required my full and direct attention, intervention and personal management. The time I documented below is in addition to time spent performing reported procedures but includes the following listed in this critical care notation. Medical Decision Making - Medical Records Medical records reviewed: Yes: I reviewed the patient's medical records. - Jeremy Inquiry Pt receiving controlled substance: No Vital Signs: 05/09/20 09:34 05/09/20 11:54 Temperature 99.7 F H Temperature Source Oral Pulse Rate [Apical] 133 H 124 H Respiratory Rate 26 H 26 H Blood Pressure [Right Arm] 122/65 107/53 L Blood Pressure Mean [Right Arm] 84 71 Blood Pressure Source [Right Arm] Automatic Cuff Automatic Cuff Blood Pressure Position [Right Arm] Sitting Sitting 02 Sat by Pulse Oximetry 98 96 Oxygen Delivery Method Room Air Nasal Cannula Oxygen Flow Rate (LPM) 2 - Lab Data Lab Results 05/09/20 10:00: Chlamy pneumoniae PCR Not detected, Adenovirus (PCR) Not detected, B. pertussis DNA (PCR) Not detected, Coronavirus OC43 (PCR) Not detected, Coronavirus HKU1 (PCR) Not detected, Coronavirus 229E (PCR) Not detected, SARS-CoV-2 (PCR) Detected A, Coronavirus NL63 (PCR) Not detected, Human Metapneumovir PCR Not detected, Influenza A (H1) PCR Not detected, Influ A (H1N1/09) PCR Not detected, Influenza A (H3) PCR Not detected, Influenza Type A (PCR) Not detected, Influenza Type B (PCR) Not detected, M. pneumoniae (PCR) Not detected, Parainfluenza 1 (PCR) Not detected, Parainfluenza 2 (PCR) Not detected, Parainfluenza 3 (PCR) Not detected, Parainfluenza 4 (PCR) Not detected, RSV (PCR) Not detected, Entero/Rhino (PCR) Not detected 05/09/20 10:55: WBC 26.8 H*, RBC 3.86 L, Hgb 11.5 L, Hct 33.7 L, MCV 87.4, MCH 29.7, MCHC 34.0, RDW 14.0, Plt Count 67 L, MPV 11.6 H, Neut % (Auto) 83.1 H, Lymph % (Auto) 4.4 L, [place] % (Auto) 12.2 H, Eos % (Auto) 0.2, Baso % (Auto) 0.2, Neut # (Auto) 22.2 H, Lymph # (Auto) 1.2, [place] # (Auto) 3.3 H, Eos # (Auto) 0.1, Baso # (Auto) 0.0, Total Counted 100, Neutrophils % (Manual) 88 H, Band Neutrophils % 2.0, Lymphocytes % (Manual) 6 L, Monocytes % (Manual) 4, Platelet Estimate Marked decrease, RBC Morphology Normal 05/09/20 10:55: Sodium 118 L, Potassium 4.3, Chloride 85 L, Carbon Dioxide 24, Anion Gap 13.3, BUN 28 H, Creatinine 1.00, Estimated Creat Clear 77, Estimated GFR 79, Est GFR ( Amer) 96, Glucose 86, Calcium 7.3 L, Total Bilirubin 1.4 H 05/09/20 11:07: Lactate 1.9 Result diagrams: 05/09/20 10:55 05/09/20 10:55 Orders (Tests/Meds): ED MEDICATIONS Generic Name Dose Route Start Last Admin Trade Name Freq PRN Reason Stop Dose Admin Acetaminophen 650 mg 05/09/20 12:25 Acetaminophen 325mg Tab PO 06/08/20 12:24 Q6HP PRN Mild pain,fever,headache Ascorbic Acid 500 mg 05/09/20 13:00 Ascorbic Acid 500mg Tab PO 06/08/20 12:59 QID ONEIL Dexamethasone 6 mg 05/10/20 09:00 Dexamethasone 4mg Tablet PO 06/09/20 08:59 DAILY ONEIL Enoxaparin Sodium 40 mg 05/10/20 09:00 Enoxaparin 40mg/0.4ml Syringe SQ 06/09/20 08:59 DAILY ONEIL Ergocalciferol 50,000 unit 05/09/20 12:25 Ergocalciferol 50,000 Units (1.25mg) Capsule PO 06/08/20 12:24 WEEKLY ONEIL Famotidine 20 mg 05/09/20 21:00 Famotidine 20mg Tablet PO 06/08/20 20:59 BID ONEIL Sodium Chloride 1,000 mls @ 100 mls/hr 05/09/20 12:25 Sod Chlor 0.9% 1000ml Bag IV 06/08/20 12:24 .Q10H ONEIL Azithromycin 500 mg/ Sodium 250 mls @ 250 mls/hr
--- NOTE | 2020-05-09 09:47 | PC.NURSE ---
RT and Rad notified of new orders on pt.
--- NOTE | 2020-05-09 09:51 | XR_ITS ---
PROCEDURE: XR CHEST PORTABLE CLINICAL HISTORY: SOB + sepsis COMPARISON: No exams were available for comparison FINDINGS: The cardiomediastinal silhouette and pulmonary vascularity are within normal limits. There are diffuse bilateral patchy ill-defined pneumonic infiltrates. There is blunting of left costophrenic angle suggesting a small pleural effusion. There monitor lines overlying the chest. IMPRESSION: Bilateral ill-defined pneumonic infiltrates certainly Covid 19 cannot be excluded. Dictated by: Dr. Vu Gil MD 05/09/2020 12:05 Dr. Vu Gil MD in 05/09/2020 12:05
[2020-05-09 10:09] LABS: Adenovirus,PCR Not Detected (NotDetected); Bordetella Pertussis Not Detected (NotDetected); Chlamydophila Pneumoniae, PCR Not Detected (NotDetected); Coronavirus 229E Not Detected (NotDetected); Coronavirus NL63 Not Detected (NotDetected); Coronavirus OC43 Not Detected (NotDetected); Coronovirus HKU1,PCR Not Detected (NotDetected); Human Metapneumovirus Not Detected (NotDetected); Influenza A, PCR Not Detected (NotDetected); Influenza AH1, 2009 Not Detected (NotDetected); Influenza AH1, PCR Not Detected (NotDetected); Influenza AH3,PCR Not Detected (NotDetected); Influenza B, PCR Not Detected (NotDetected); Mycoplasma Pneumoniae, PCR Not Detected (NotDetected); Parainfluenza 1, PCR Not Detected (NotDetected); Parainfluenza 2, PCR Not Detected (NotDetected); Parainfluenza 3, PCR Not Detected (NotDetected); Parainfluenza 4, PCR Not Detected (NotDetected); Respiratory Syncytial Virus Not Detected (NotDetected); Rhinovirus/Enterovirus Not Detected (NotDetected)
--- NOTE | 2020-05-09 10:35 | PC.NURSE ---
notified pharmacy of vancomycin consult
--- NOTE | 2020-05-09 10:40 | HMH.PHACONS ---
- Pharmacy Consult Date: 05/09/20 Time: 10:40 Referring provider: DR. MONTOYA Reason for Consult:: VANCOMYCIN DOSING Allergies and ADEs:: Allergies Allergy/AdvReac Type Severity Reaction Status Date / Time No Known Allergies Allergy Unverified 05/15/17 15:04 Home Medications:: Home Medications Medication Instructions Recorded Confirmed Type Sulfamethoxazole/Trimethoprim 1 each PO BID #20 tab 11/06/17 Rx [Bactrim DS tablet] Height: 1.7 m Weight: 61.235 kg Laboratory Results:: PENDING Medical History: Denies:: Cancer, Diabetes Mellitus Type 1, Diabetes Mellitus Type 2, MRSA Assessment and Plan - Assessment and plan all Dx Assessment and Plan for all problems:: Pharmacokinetic dosing service Patient: Floor: Age: 50 yo Serum creatinine: 0.8 mg/dL Height: 66.9 Inches Weight (kg): 61.2 IBW (kg): 65.87 Dosing wt(kg): 61.2 Estimated Creatinine clearance (ml/min): 95.6 CRCL method: Cockcroft and Gault using ibw(default). Drug selected: Vancomycin Loading dose (mg): 0 Vd (liters): 49.0 (factor used: 0.8 L/kg) Enrique (hr-1): 0.084 Half life (hrs): 8.25 Recommended dose: 1250 mg Interval: 12 hrs Infusion time (hrs): 2.0 Predicted peak (mcg/mL): 37.0 Predicted trough (mcg/mL): 15.97 Total body weight is being used for vancomycin dosing. Recommendations: Give Vancomycin 1250 mg q 12 hrs with an expected Cpeak of 37.0 mcg/ml and an expected Ctrough of 15.97 mcg/ml Thank you for the consult, will continue to follow.
[2020-05-09 11:02] LABS: Basophils % 0.2 % (0.1-2.0); Eosinophils # 0.1 K/mm3 (0.0-0.4); Eosinophils % 0.2 % (0.1-12.0); Hematocrit 33.7 % (42.0-52.0); Hemoglobin 11.5 g/dL (14.1-18.0); Lymphocytes # 1.2 K/mm3 (0.7-4.5); Lymphocytes % 4.4 % (10-50); Mean Corpuscular Hemoglobin 29.7 pg (27.0-31.2); Mean Corpuscular Volume 87.4 fl (80-94); Mean Platelet Volume 11.6 fl (7.4-10.4); Monocytes # 3.3 K/mm3 (0.1-1.0); Monocytes % 12.2 % (1.7-9.3); Neutrophils # 22.2 K/mm3 (1.8-7.8); Neutrophils % 83.1 % (37.0-80.0); Platelet Count 67 K/mm3 (142-424); Red Blood Count 3.86 M/mm3 (4.60-6.20); White Blood Count 26.8 K/mm3 (4.8-10.8)
[2020-05-09 11:05] LABS: MANUAL DIFFERENTIAL MANUAL DIFFERENTIAL (MANUAL DIFF)
[2020-05-09 11:12] LABS: Chloride 85 mmol/L (98-107); Sodium 118 mmol/L (136-145)
[2020-05-09 11:13] LABS: Potassium 4.3 mmoL/L (3.5-5.1)
[2020-05-09 11:15] LABS: Anion Gap 13.3 mEq/L (5-15); Bilirubin,Total 1.4 mg/dl (0.2-1.3); Blood Urea Nitrogen 28 mg/dl (9-20); Carbon Dioxide 24 mmol/L (22.0-30.0); Creatinine Clearance Estimated 77 mL/min (50-200); Estimated Glomerular Filt Rate 79 ml/min (>60); GFR (African American) 96 ML/MIN (>60)
[2020-05-09 11:16] LABS: Calcium 7.3 mg/dl (8.4-10.2); Glucose 86 mg/dl (74-100)
[2020-05-09 11:22] LABS: Lymphocytes % 6 % (10-50); Monocytes % 4 % (2-9); Neutrophils % 88 % (42-76); Platelet Estimate Marked Decrease; RBC Morphology Normal; Total Cells Counted 100
[2020-05-09 11:23] LABS: Lactic Acid 1.9 mmol/L (0.7-2.1)
[2020-05-09 11:28] LABS: Coronavirus 19, PCR Detected (NotDetected)
--- NOTE | 2020-05-09 11:28 | PC.NURSE ---
notified ER pt is covid positive
--- NOTE | 2020-05-09 11:35 | PC.NURSE ---
antibiotics continued to be delayed r/t have not been able to obtain blood cultures on pt.
--- NOTE | 2020-05-09 11:37 | PC.NURSE ---
prom burn off operator paging service
--- NOTE | 2020-05-09 11:45 | PC.NURSE ---
DR MONTOYA SPEAKING WITH DR ULLOA FOR POSSIBLE ADMISSION TO COVID UNIT
--- NOTE | 2020-05-09 11:51 | PC.NURSE ---
blood cultures and lactic acid sent to lab at this time
--- NOTE | 2020-05-09 11:52 | PC.NURSE ---
CALLED HOUSE FOR BED
--- NOTE | 2020-05-09 12:27 | PC.NURSE ---
notified covid unit staff pt is ready for admission
[2020-05-09 13:05] LABS: Microscopic, Urine URINE MICROSCOPIC (MICROSCOPIC)
[2020-05-09 13:12] LABS: Appearance,Urine CLEAR (Clear); Bilirubin,Urine Negative (Negative); Blood, Urine 1+ (Negative); Color,Urine YELLOW (Yellow); Glucose,Urine (UA) Negative (Negative); Ketones,Urine Negative (Negative); Leukocyte Esterase,Urine Negative (Negative); Nitrate,Urine Negative (Negative); PH,Urine 5.5 (5.0-8.5); Protein,Urine TRACE (Negative)
[2020-05-09 13:20] LABS: Amorphous Sediment,Urine 1+ /lpf
--- NOTE | 2020-05-09 16:00 | PC.NURSE ---
Told SHIRA Rajan about temps and Respirations
--- NOTE | 2020-05-09 17:52 | PC.NURSE ---
A&OX4. PT HAS TOLERATED RA WELL MOST OF THE SHIFT. HE HAD TO BE PLACED ON 2L ONCE FOR COMFORT BUT IS CURRENTLY ON RA WITH SATS AT 97%. RESPIRATIONS HAVE BEEN REGULAR AND UNLABORED THROUGHOUT MOST OF THE SHIFT. HE WAS LABORED AT ONE TIME DUE TO A FEVER. PT WAS ADMINISTERED TYLENOL AND ON REASSESSMENT, FEVER WAS TRENDING DOWN. PT SEEMS TO FEEL BETTER NOW THAT FEVER HAS BROKE. PT WAS ALSO GIVEN CLONIDINE FOR WITHDRAWAL SYMPTOMS. HE REPORTS MUSCLE PAIN ALL OVER AND WAS DIAPHORETIC. PT REPORTS LAST USING 4 DAYS AGO. HE USES IV HEROIN AND PERCOCETS. HE STATES HE FEELS A LITTLE BETTER AFTER RECEIVING CLONIDINE AND ZOFRAN. FINE CRACKLES SCATTERED THROUGHOUT. OCCASIONAL NONPRODUCTIVE COUGH NOTED. PT IS AWARE OF NEED FOR SPUTUM. ACTIVE BOWEL SOUNDS HEARD IN ALL 4 QUADRANTS. SOFT AND NONTENDER ABDOMEN. NO BM THUS FAR. PT VOIDS PER URINAL AND RESTROOM W STANDBY ASSIST. HAND SECURITY SYSTEMS INSTALLER EQUAL. +2 PULSES NOTED THROUGHOUT. PT HAS RECEIVED AZITHROMYCIN, ROCEPHIN, VANCOMYCIN, AND REMDESIVIR AND TOLERATED WELL. NS INFUSING AT 100ML/HR. PT RECEIVED SEPSIS BOLUS IN ER AND COMPLETED IT ONCE ON THE FLOOR. PT IS CURRENTLY LYING IN BED RESTING. CALL LIGHT WITHIN REACH. VSS. WILL CONTINUE TO MONITOR. DAUGHTER CAME TO TALK TO THIS NURSE IN WAITING ROM DISCUSSING HER DADS DRUG ADDICTION. SHE STATES SHE WOULD LIKE TO TALK TO CASE MANAGEMENT. WILL PASS ALONG TO CERTIFIED FLIGHT INSTRUCTOR RN TO PASS ALONG IN THE AM.
[2020-05-10] VITALS (9 sets, daily range): BP systolic 96–120; BP diastolic 57–78; PULSE 58–121; RESP 16–24; TEMP 36.3–37.2; O2SAT 91–96; BMI 18.5
--- NOTE | 2020-05-10 04:37 | PC.NURSE ---
Pt is A&O x4. Fine crackles heard at bilateral bases, per auscultation. Pt has a dry, nonproductive cough. Specimen cup placed at bedside for sputum sample, pt educated and aware of its purpose. Pt is urinating clear, dark yellow urine per urinal. No BM noted this shift, active bowel sounds in all 4 quads. +2 palpable pulses on all extremities. Multiple track garcia from IV drug use noted to all extremities. CIWA scores performed q4h this shift with scores ranging from 0-2. PRN clonidine given this shift for withdrawal symptoms. Only withdrawal symptoms present this shift have been: sweaty palms, tremors that are not seen but felt, and tachycardia. No MENARD, feelings of anxiety, visual or auditory disturbances present at this time. No other complaints or acute changes. Will continue to monitor.
--- NOTE | 2020-05-10 09:10 | HMH.HP ---
*Admission Date: 05/09/20 *Chief complaint: Shortness of breath *History of present illness: 50 year old male, with no PCP, presented to [facility] ER yesterday complaining of a 4 to 5 day history of not feeling well. He reports body aches, dry cough and shortness of breath with exertion. Patient states he was around someone with Covid about 2 weeks ago. He frequently uses IV heroin and crushes and injects Percocet as well. [facility] History I have reviewed the patient's past medical history: Yes Medical History: Denies:: Cancer, Diabetes Mellitus Type 1, Diabetes Mellitus Type 2, MRSA *Have you ever received a pneumonia vaccine?: No *Have you received a flu vaccine this season?: No Other Medical History: Reports: Arthritis Other Surgeries: Yes: Other (L finger/hand surgery) Amputation: No Fractures: No - *Social History Last grade of school completed: High school graduate Smoking Status: Current every day smoker Tobacco Type: cigarettes # Packs/Day (cigarettes): 1 #Yrs smoked (if former smoker): 31 Alcohol Intake: never Substance Use Type: heroin, painkillers Last Used Substance: days (ago) *Occupational Status:: employed Housing: apartment Household Members: friend(s) *Travel in the last 8 weeks: None Family Hx:: Asthma, Cancer Review of Systems - Constitutional Denies chills, Denies fever(s) - Eyes Denies blurry vision - ENT Denies change in voice - *Cardiovascular Denies chest pain - *Respiratory Denies coughing up blood - *Gastrointestinal Reports loose stools, Denies abdominal pain, Denies vomiting - *Genitourinary Denies difficulty urinating - *Musculoskeletal Denies joint pain - Integumentary/Breasts Denies rash - *Neurologic Denies dizziness - Psychiatric Denies confusion Meds Home Medications Medication Instructions Recorded Confirmed Type No Known Home Medications 05/09/20 05/09/20 History Allergies Allergy/AdvReac Type Severity Reaction Status Date / Time No Known Allergies Allergy Unverified 05/15/17 15:04 Exam Vital signs and Labs for Last 24 Hours: Temp Pulse Resp BP Pulse Ox 97.9 F 121 H 20 103/68 L 92 L 05/10/20 07:22 05/10/20 07:22 05/10/20 07:22 05/10/20 07:22 05/10/20 07:22 Laboratory Results - last 24 hr 05/09/20 10:00: Chlamy pneumoniae PCR Not detected, Adenovirus (PCR) Not detected, B. pertussis DNA (PCR) Not detected, Coronavirus OC43 (PCR) Not detected, Coronavirus HKU1 (PCR) Not detected, Coronavirus 229E (PCR) Not detected, SARS-CoV-2 (PCR) Detected A, Coronavirus NL63 (PCR) Not detected, Human Metapneumovir PCR Not detected, Influenza A (H1) PCR Not detected, Influ A (H1N1/09) PCR Not detected, Influenza A (H3) PCR Not detected, Influenza Type A (PCR) Not detected, Influenza Type B (PCR) Not detected, M. pneumoniae (PCR) Not detected, Parainfluenza 1 (PCR) Not detected, Parainfluenza 2 (PCR) Not detected, Parainfluenza 3 (PCR) Not detected, Parainfluenza 4 (PCR) Not detected, RSV (PCR) Not detected, Entero/Rhino (PCR) Not detected 05/09/20 10:55: WBC 26.8 H*, RBC 3.86 L, Hgb 11.5 L, Hct 33.7 L, MCV 87.4, MCH 29.7, MCHC 34.0, RDW 14.0, Plt Count 67 L, MPV 11.6 H, Neut % (Auto) 83.1 H, Lymph % (Auto) 4.4 L, [place] % (Auto) 12.2 H, Eos % (Auto) 0.2, Baso % (Auto) 0.2, Neut # (Auto) 22.2 H, Lymph # (Auto) 1.2, [place] # (Auto) 3.3 H, Eos # (Auto) 0.1, Baso # (Auto) 0.0, Total Counted 100, Neutrophils % (Manual) 88 H, Band Neutrophils % 2.0, Lymphocytes % (Manual) 6 L, Monocytes % (Manual) 4, Platelet Estimate Marked decrease, RBC Morphology Normal 05/09/20 10:55: Sodium 118 L, Potassium 4.3, Chloride 85 L, Carbon Dioxide 24, Anion Gap 13.3, BUN 28 H, Creatinine 1.00, Estimated Creat Clear 77, Estimated GFR 79, Est GFR ( Amer) 96, Glucose 86, Calcium 7.3 L, Total Bilirubin 1.4 H 05/09/20 11:07: Lactate 1.9 05/09/20 12:52: Urine Color Yellow, Urine Appearance Clear, Urine pH 5.5, Ur Specific [place] 1.010, Urine Protein Trace, Urine Glucose (UA) Negative,
--- NOTE | 2020-05-10 12:27 | PC.NURSE ---
1150 - Received call from Ashley in lab that blood was hemolyzed. Asked if staff would come up d/t pt being difficult stick. States they would. Attempted to stick pt successfully. RAYSHAWN and qasim tolliver collected @ [id number]. Called for lab to collect.
[2020-05-10 13:06] LABS: Chloride 93 mmol/L (98-107)
[2020-05-10 13:07] LABS: Potassium 4.4 mmoL/L (3.5-5.1); Sodium 123 mmol/L (136-145)
[2020-05-10 13:09] LABS: Alanine Aminotransferase 38 U/L (12-78); Alkaline Phosphatase 194 U/L (38-126); Anion Gap 8.4 mEq/L (5-15); Aspartate Amino Transferase 65 U/L (17-59); Bilirubin,Total 0.9 mg/dl (0.2-1.3); Blood Urea Nitrogen 20 mg/dl (9-20); Carbon Dioxide 26 mmol/L (22.0-30.0); Creatinine Clearance Estimated 96 mL/min (50-200); Estimated Glomerular Filt Rate 119 ml/min (>60); GFR (African American) 144 ML/MIN (>60)
[2020-05-10 13:10] LABS: Albumin Level 2.5 g/dl (3.5-5.0); Albumin/Globulin Ratio 0.7 (1.1-1.8); Calcium 7.8 mg/dl (8.4-10.2); Globulin 3.6 g/dL (1.3-3.2); Glucose 158 mg/dl (74-100); Total Protein,Serum 6.1 g/dl (6.3-8.2)
[2020-05-10 13:42] LABS: Vancomycin,Trough 9.3 ug/mL (5.0-10.0)
--- NOTE | 2020-05-10 13:43 | P.CONPHA_ITS ---
- Pharmacy Consult Date: 05/10/20 Time: 13:43 Referring provider: DR. RAUSCH Reason for Consult:: VANCOMYCIN TROUGH LEVEL Allergies and ADEs:: Allergies Allergy/AdvReac Type Severity Reaction Status Date / Time No Known Allergies Allergy Unverified 05/15/17 15:04 Home Medications:: Home Medications Medication Instructions Recorded Confirmed Type No Known Home Medications 05/09/20 05/09/20 History Height: 1.7 m Weight: 53.581 kg Laboratory Results:: Laboratory Results - last 24 hr 05/10/20 12:40: Sodium 123 L, Potassium 4.4, Chloride 93 L, Carbon Dioxide 26, Anion Gap 8.4, BUN 20 D, Creatinine 0.70 D, Estimated Creat Clear 96, Est imated GFR 119, Est GFR ( Amer) 144 D, Glucose 158 H, Calcium 7.8 L, Total Bilirubin 0.9, AST 65 H, ALT 38, Alkaline Phosphatase 194 H, Total Protein 6.1 L, Albumin 2.5 L, Globulin 3.6 H, Albumin/Globulin Ratio 0.7 L 05/10/20 12:40: Vancomycin Trough 9.3 Medical History: Denies:: Cancer, Diabetes Mellitus Type 1, Diabetes Mellitus Type 2, MRSA Assessment and Plan (1) Tachycardia Status: Acute Category: Medical Code(s): R00.0 - Tachycardia, unspecified (2) Nicotine dependence, unspecified, uncomplicated Status: Acute Category: Medical Code(s): F17.200 - Nicotine dependence, unspecified, uncomplicated (3) COVID-19 Status: Acute Category: Medical Code(s): U07.1 - COVID-19 (4) IVDU (intravenous drug user) Status: Acute Category: Social Hx Code(s): F19.90 - Other psychoactive substance use, unspecified, uncomplicated (5) Hyponatremia Status: Acute Category: Medical Code(s): E87.1 - Hypo-osmolality and hyponatremia (6) Sepsis Status: Acute Qualifiers: Sepsis type: sepsis due to unspecified organism Sepsis acute organ dysfunction status: unspecified Qualified Code(s): A41.9 - Sepsis, unspecified organism Category: Medical Code(s): A41.9 - Sepsis, unspecified organism (7) Pneumonia Status: Acute Qualifiers: Laterality: bilateral Category: Medical Code(s): J18.9 - Pneumonia, unspecified organism - Assessment and plan all Dx Assessment and Plan for all problems:: BASED ON PATIENT FACTORS AND VANCOMYCIN TROUGH LEVEL OF 9.3 AFTER TWO DOSES, RECOMMEND CONTINUING CURRENT DOSE OF VANCOMYCIN (1250MG EVERY 12 HOURS). PHARMACY WILL CONTINUE TO MONITOR AND WILL ADJUST DOSE APPROPRIATE. -KIAH LEONARD, KISHAD
--- NOTE | 2020-05-10 14:39 | P.CONPHA_ITS ---
[facility] Pharmacy VTE Monitoring - Patient Demographics Admission date: 05/09/20 Report Date: 05/10/20 Time: 14:39 Allergies/Adverse Reactions: Patient Allergies No Known Allergies Allergy (Unverified 05/15/17 15:04) Height: 1.7 m Weight: 53.581 kg Patient Problems: Current Active Problems IVDU (intravenous drug user) (Acute) COVID-19 (Acute) Sepsis (Acute) Tachycardia (Acute) Nicotine dependence, unspecified, uncomplicated (Acute) Hyponatremia (Acute) Pneumonia (Acute) - VTE Risk Labs: VTE Related Lab Results Hgb 11.5 g/dL (14.1-18.0) L 05/09/20 10:55 Hct 33.7 % (42.0-52.0) L 05/09/20 10:55 Plt Count 67 K/mm3 (142-424) L 05/09/20 10:55 BUN 20 mg/dl (9-20) D 05/10/20 12:40 Creatinine 0.70 mg/dl (0.66-1.25) D 05/10/20 12:40 Estimated Creat Clear 96 mL/min (50-200) 05/10/20 12:40 Was VTE Risk Assessment Performed: Yes VTE Score: 1 VTE Risk Level: Very Low Risk - Prophylaxis VTE Prophylaxis Ordered?: Yes Types of VTE Prophylaxis: TEDS Knee High, Pharmacological Location of Applied Device: Bilateral Lower Extremeties Pharmacologic Type: Enoxaparin
[2020-05-10 14:59] LABS: Basophils # 0.1 K/mm3 (0-0.2); Basophils % 0.4 % (0.1-2.0); Eosinophils # 0.1 K/mm3 (0.0-0.4); Eosinophils % 0.3 % (0.1-12.0); Hematocrit 32.7 % (42.0-52.0); Hemoglobin 11.1 g/dL (14.1-18.0); Lymphocytes % 3.8 % (10-50); Mean Corpuscular Hemoglobin 30.2 pg (27.0-31.2); Mean Corpuscular Volume 88.8 fl (80-94); Mean Platelet Volume 13.5 fl (7.4-10.4); Monocytes # 0.7 K/mm3 (0.1-1.0); Monocytes % 2.4 % (1.7-9.3); Neutrophils # 25.1 K/mm3 (1.8-7.8); Neutrophils % 93.1 % (37.0-80.0); Platelet Count 54 K/mm3 (142-424); Red Blood Count 3.69 M/mm3 (4.60-6.20); Red Cell Distribution Width 14.1 % (11.5-17.5); White Blood Count 26.9 K/mm3 (4.8-10.8)
[2020-05-10 15:03] LABS: MANUAL DIFFERENTIAL MANUAL DIFFERENTIAL (MANUAL DIFF)
[2020-05-10 15:31] LABS: Lymphocytes % 1 % (10-50); Monocytes % 2 % (2-9); Neutrophils % 97 % (42-76); Platelet Estimate Moderate Decrease; RBC Morphology Normal; Total Cells Counted 100
[2020-05-10 15:50] LABS: POC Glucose,Bedside 141 (70-110)
--- NOTE | 2020-05-10 17:44 | PC.NURSE ---
Pt has wanted to stay in bed all day, has napped at intervals. Remains on room air. No s/s of resp distress. Does have an occasional dry cough, speci cup has been placed @ bedside for collection. Pt encouraged/reminded to use IS throughout shift. IS @ best = 1750. Abdomen soft, non-tender w/ active BS in all quads. No c/o nausea. Had 1 large BM this shift. Voiding clear chicho urine w/o difficulty per urinal. Requires assistance x 1 when ambulating d/t unsteady gait. Non-skids in place. Pt did pull out his IV this shift, when he called out to tell staff about it the IV was found half pulled out and coban removed. It was noted that IV had infiltrated while NS was infusing. Remainder of IV was removed w/ tip intact. Site was dressed and warm compress was applied and arm elevated. CIWA performed Q4H, scores ranging 1-2. Pt does admit to agitation and some anxiet, Atarax admin per JUL. Pt is currently sitting up in bed w/ no needs voiced. Call dickson w/in reach.
--- NOTE | 2020-05-11 03:29 | PC.NURSE ---
No acute changes noted. Pt has slept most of shift. Has remained on RA with sats in low 90s. Lungs are diminished. Pt has not c/o any soa or discomfort. Has ambulated to toilet and used the urinal. Total urine output thus far is 750 ml. Pt has had 2 BM this shift. Medications administered per jul. Call light within reach. Will continue to monitor.
[2020-05-11 03:50] VITALS: BP 123/83; PULSE 112; RESP 16; TEMP 37; O2SAT 93
[2020-05-11 05:00] VITALS: BMI 19.3
[2020-05-11 05:46] LABS: Basophils % 0.1 % (0.1-2.0); Eosinophils % 0.1 % (0.1-12.0); Hemoglobin 10.8 g/dL (14.1-18.0); Lymphocytes # 0.6 K/mm3 (0.7-4.5); Lymphocytes % 3.1 % (10-50); Mean Corpuscular HGB Conc 34.7 g/dL (31.8-35.4); Mean Corpuscular Hemoglobin 30.1 pg (27.0-31.2); Mean Corpuscular Volume 86.8 fl (80-94); Mean Platelet Volume 11.4 fl (7.4-10.4); Monocytes # 0.6 K/mm3 (0.1-1.0); Monocytes % 3.2 % (1.7-9.3); Neutrophils # 18.9 K/mm3 (1.8-7.8); Neutrophils % 93.5 % (37.0-80.0); Platelet Count 63 K/mm3 (142-424); Red Blood Count 3.57 M/mm3 (4.60-6.20); Red Cell Distribution Width 14.3 % (11.5-17.5); White Blood Count 20.2 K/mm3 (4.8-10.8)
[2020-05-11 05:51] LABS: Chloride 99 mmol/L (98-107); Sodium 127 mmol/L (136-145)
[2020-05-11 05:52] LABS: Potassium 4.4 mmoL/L (3.5-5.1)
[2020-05-11 05:54] LABS: Alanine Aminotransferase 25 U/L (12-78); Albumin Level 2.2 g/dl (3.5-5.0); Albumin/Globulin Ratio 0.6 (1.1-1.8); Alkaline Phosphatase 176 U/L (38-126); Anion Gap 9.4 mEq/L (5-15); Aspartate Amino Transferase 38 U/L (17-59); Blood Urea Nitrogen 22 mg/dl (9-20); Carbon Dioxide 23 mmol/L (22.0-30.0); Creatinine Clearance Estimated 87 mL/min (50-200); Estimated Glomerular Filt Rate 102 ml/min (>60); GFR (African American) 124 ML/MIN (>60); Globulin 3.4 g/dL (1.3-3.2); Total Protein,Serum 5.6 g/dl (6.3-8.2)
[2020-05-11 05:55] LABS: Calcium 7.7 mg/dl (8.4-10.2); Glucose 111 mg/dl (74-100)
[2020-05-11 05:58] LABS: MANUAL DIFFERENTIAL MANUAL DIFFERENTIAL (MANUAL DIFF)
[2020-05-11 06:25] LABS: Lymphocytes % 2 % (10-50); Monocytes % 1 % (2-9); Neutrophils % 97 % (42-76); Platelet Estimate Normal; Target Cells 1+; Total Cells Counted 100
[2020-05-11 08:00] VITALS: BP 114/82; PULSE 102; RESP 19; TEMP 36.8; O2SAT 97
--- NOTE | 2020-05-11 09:07 | HMH.ACPN2 ---
Internal Medicine - PN: Subj *Date: 05/11/20 *Time: 09:07 Interval history: Patient with no new complaints today, states he feels better today, wants to know when he can go home. Exam Vital signs and Labs for Last 24 Hours: Temp Pulse Resp BP Pulse Ox 98.3 F 102 H 19 114/82 97 05/11/20 08:00 05/11/20 08:00 05/11/20 08:00 05/11/20 08:00 05/11/20 08:00 Laboratory Results - last 24 hr 05/10/20 05:56: POC Glucose 141 H 05/10/20 12:40: Sodium 123 L, Potassium 4.4, Chloride 93 L, Carbon Dioxide 26, Anion Gap 8.4, BUN 20 D, Creatinine 0.70 D, Estimated Creat Clear 96, Estimated GFR 119, Est GFR ( Amer) 144 D, Glucose 158 H, Calcium 7.8 L, Total Bilirubin 0.9, AST 65 H, ALT 38, Alkaline Phosphatase 194 H, Total Protein 6.1 L, Albumin 2.5 L, Globulin 3.6 H, Albumin/Globulin Ratio 0.7 L 05/10/20 12:40: Vancomycin Trough 9.3 05/10/20 14:45: WBC 26.9 H*, RBC 3.69 L, Hgb 11.1 L, Hct 32.7 L, MCV 88.8, MCH 30.2, MCHC 34.0, RDW 14.1, Plt Count 54 L, MPV 13.5 H, Neut % (Auto) 93.1 H, Lymph % (Auto) 3.8 L, Dixon % (Auto) 2.4, Eos % (Auto) 0.3, Baso % (Auto) 0.4, Neut # (Auto) 25.1 H, Lymph # (Auto) 1.0, Dixon # (Auto) 0.7, Eos # (Auto) 0.1, Baso # (Auto) 0.1, Total Counted 100, Neutrophils % (Manual) 97 H, Lymphocytes % (Manual) 1 L, Monocytes % (Manual) 2, Platelet Estimate Moderate decrease, RBC Morphology Normal 05/11/20 05:05: Sodium 127 L, Potassium 4.4, Chloride 99, Carbon Dioxide 23, Anion Gap 9.4, BUN 22 H, Creatinine 0.80, Estimated Creat Clear 87, Estimated GFR 102, Est GFR ( Amer) 124, Glucose 111 H D, Calcium 7.7 L, Total Bilirubin 1.0, AST 38 D, ALT 25 D, Alkaline Phosphatase 176 H, Total Protein 5.6 L, Albumin 2.2 L D, Globulin 3.4 H, Albumin/Globulin Ratio 0.6 L 05/11/20 05:05: WBC 20.2 H*, RBC 3.57 L, Hgb 10.8 L, Hct 31.0 L, MCV 86.8, MCH 30.1, MCHC 34.7, RDW 14.3, Plt Count 63 L, MPV 11.4 H, Neut % (Auto) 93.5 H, Lymph % (Auto) 3.1 L, Dixon % (Auto) 3.2, Eos % (Auto) 0.1, Baso % (Auto) 0.1, Neut # (Auto) 18.9 H, Lymph # (Auto) 0.6 L, Dixon # (Auto) 0.6, Eos # (Auto) 0.0, Baso # (Auto) 0.0, Total Counted 100, Neutrophils % (Manual) 97 H, Lymphocytes % (Manual) 2 L, Monocytes % (Manual) 1 L, Platelet Estimate Normal, Target Cells 1+ Vital Signs - 24 hr 05/10/20 11:16 05/10/20 15:45 05/10/20 19:55 Temperature 98.2 F 98.3 F 98.4 F Pulse Rate [Apical] 107 H 106 H 106 H Respiratory Rate 24 18 16 Blood Pressure [Right Arm] 98/69 L 120/73 113/78 02 Sat by Pulse Oximetry 96 95 93 L 05/10/20 20:00 05/10/20 23:46 05/11/20 03:50 Temperature 98.9 F 98.6 F Pulse Rate [Apical] 106 H 104 H 112 H Respiratory Rate 18 16 Blood Pressure [Right Arm] 116/76 123/83 02 Sat by Pulse Oximetry 93 L 91 L 93 L 05/11/20 08:00 Temperature 98.3 F Pulse Rate [Apical] 102 H Respiratory Rate 19 Blood Pressure [Right Arm] 114/82 02 Sat by Pulse Oximetry 97 I & O for Last 24 hours: Intake & Output 05/08/20 05/09/20 05/10/20 05/11/20 23:59 23:59 23:59 23:59 Intake Total 2507 / 2507 2250 / 2250 720 / 720 Output Total 1250 / 1600 1900 / 1900 700 / 700 Balance 1257 / 907 350 / 350 Weight 118 lb 1.6 oz 118 lb 2 oz 122 lb 12.8 oz Microbiology Reports for the Last 24 Hours: Microbiology 05/09/20 11:07 Blood Blood Culture - Preliminary Gram Positive Cocci 05/09/20 11:06 Blood Blood Culture - Preliminary Gram Positive Cocci 05/09/20 12:52 Urine,Clean Catch Urine Culture - Preliminary Gram Positive Cocci - Constitutional no acute distress - *Routine HEENT Exam Head: Present: normocephalic Eye: Present: EOMI, PERRL ENT: Present: mucous membranes moist - *Routine Neck Exam Present: supple. Absent: lymphadenopathy - *Routine Respiratory Exam Present: rales (few bibasilar, good air movement over all) - *Routine Cardiovascular Exam Present: RRR - *Routine Abdominal Exam Present: soft, normoactiv
[2020-05-11 11:55] VITALS: BP 123/79; PULSE 103; RESP 19; O2SAT 93
[2020-05-11 16:00] VITALS: BP 114/68; PULSE 111; RESP 19; TEMP 36.9; O2SAT 95
--- NOTE | 2020-05-11 18:46 | PC.NURSE ---
Pt had envelope delivered with what appeared to be a crushed pill and stated it was a percocet. This nurse informed him, he was unable to have in hospital. He agreed for me to take away and approx 1 hr later was dressed and stated he wanted to leave. This nurse explained it would be ama and he would need to sign an ama form, this nurse also explained complications and risks involved with leaving. He agreed and IV was removed. Dr. Mantilla made aware at 1723. Pt left at 1801.
--- NOTE | 2020-05-12 12:54 | HMH.DCSUM ---
General - General Admission date:: 05/09/20 Discharge date: 05/11/20 HPI HPI: 50 year old male, with no PCP, presented to [facility] ER yesterday complaining of a 4 to 5 day history of not feeling well. He reports body aches, dry cough and shortness of breath with exertion. Patient states he was around someone with Covid about 2 weeks ago. He frequently uses IV heroin and crushes and injects Percocet as well. Hospital Course Hospital Course: The patient's chest x-ray showed bilateral pneumonic infiltrates. He was admitted and started on broad-spectrum antibiotics due to his Covid related pneumonia. He was also started on Covid protocol. By 05/11/2020, he felt better and wanted to go home. Dr. Wilson wanted to wait on his blood and urine cultures as his blood cultures were growing gram-positive cocci. According to nursing notes the patient had an envelope delivered with what appeared to be a crushed pill and he stated it was a Percocet. The nurse informed him he was unable to have this in the hospital. Approximately 1 hour later he was dressed and stated he wanted to leave. He left AGAINST MEDICAL ADVICE. Of note, his urine and blood cultures grew MRSA. Objective Vital signs: Temp Pulse Resp BP Pulse Ox 98.4 F 111 H 19 114/68 95 05/11/20 16:00 05/11/20 16:00 05/11/20 16:00 05/11/20 16:00 05/11/20 16:00 Narrative: - Constitutional no acute distress (appears much older than stated age), thin - *Routine HEENT Exam Head: Present: normocephalic Eye: Present: EOMI, PERRL ENT: Present: mucous membranes moist - *Routine Neck Exam Present: supple. Absent: lymphadenopathy - *Routine Respiratory Exam Present: crackles (bilateral) - *Routine Cardiovascular Exam Present: RRR, tachycardia - *Routine Abdominal Exam Present: soft, normoactive bowel sounds. Absent: tenderness - *Routine Extremities Exam Absent: cyanosis, clubbing, edema - *Routine Skin Exam Present: warm. Absent: rash Comments: numerous tattoos - *Routine Neurological Exam Present: alert, oriented X3 DS: Diagnosis - Discharge Diagnosis (1) Tachycardia Status: Acute (2) Nicotine dependence, unspecified, uncomplicated Status: Acute (3) COVID-19 Status: Acute (4) IVDU (intravenous drug user) Status: Acute (5) Hyponatremia Status: Acute (6) Sepsis Status: Acute (7) Pneumonia Status: Acute (8) Thrombocytopenia Status: Acute (9) Bacteremia Status: Acute Discharge Plan - Patient Discharge Instructions Patient Instructions: Pneumonia-Adult, DI for Fever (Symptom) -- Adult, DI for Sepsis -- Adult, Preventing the Spread of Coronavirus Discharge Instructions - Follow up Plan Disposition: Left Against Medical Advice Home Medications: Home Medications Medication Instructions Recorded Confirmed Type No Known Home Medications 05/09/20 05/09/20 History Prescriptions/Medication Reconciliation: No Action No Known Home Medications - Problem Reconciliation Problems Reviewed?: Yes
== END 2020-05-11 18:01 | disposition left against medical advice (07) | DRG 177 ==
LOC: ER 11:23 → ICU 12:51
PROVIDERS: Admitting Provider Family Medicine; Emergency Provider Emergency Medicine; Visit Provider Family Medicine
DX: U07.1 COVID-19 (principal); J12.89 Other viral pneumonia; E87.1 Hypo-osmolality and hyponatremia; R78.81 Bacteremia; F11.20 Opioid dependence, uncomplicated; Z72.0 Tobacco use
CPT/HCPCS: 36415; 71045; 80048; 80053; 80202; 81001; 82247; 82962; 83605; 85007; 85025; 87040; 87077; 87086; 87088; 87186; 87581; 87633; 87798; 93005; 96365; 96366; 96375; 99285; J0456; J2405; J3370

== ENCOUNTER → 2022-07-12 08:52 | Outpatient (POV) | payer OTHER, SELFPAY ==
[2022-07-12 09:20] VITALS: BP 109/75; PULSE 76; RESP 18; O2SAT 97; BMI 18.4
--- NOTE | 2022-07-12 10:22 | EXP.PAIN.OV ---
HPI Data of Consult Patient: new to practice Consult date: 07/12/22 Requesting Physician: Brenda Suarez APRN Primary Care Provider: Donte Grimes MD Consult Narrative Reason for consult: Low back pain, neck pain, shoulder pain, elbow pain History of present illness: Mr. Coleman is a 52 year old male who presents today as a new patient. He is a referral from Dr. Grimes's office. Today he rates his pain an 8 out of 10. Patient states that he has pain throughout his body including his low back, neck bilateral shoulders and right elbow. Patient states this typically has been going on for years and progressively worsened over time. Patient states his elbow pain is frequently related to flareups of gout and swelling. Patient states that he has had a previous neck surgery back in June 2020 at [facility]. Patient states that he had came down with COVID and was hospitalized for 2 weeks and during that time he had some sort of blockage and they had to go in and clean out in order to relieve pressure on his spine. Patient states that he is unsure of exactly what procedure they did do. Patient does describe his back pain as a constant hurting sensation in his neck and shoulder pain as an aching, throbbing, sharp sensation. Patient states that he has tried [id number] medicine such as Tylenol with minimal improvement. Patient is also stated he has used heat and ice and topical such as IcyHot however these made no difference. Patient denies any physical therapy in the past and states that he has had chiropractor years ago and that it did help temporarily. Patient states that he is working on his disability paperwork that he has not been able to work due to the pain. Patient is not currently on any scheduled medications. Patient does state that he is scheduled to see a straw boss on July 26. his Jeremy is [id number]. Its been reviewed and appropriate. CC: Brenda Suarez APRN [facility] Disclaimer: The information contained in this section may have been updated after the patient was seen, as this information can be updated by other users. Medical History (Updated 07/12/22 @ 10:27 by Brenda Suarez APRN) CAD (coronary artery disease) Gout HLD (hyperlipidemia) Surgical History (Updated 07/12/22 @ 09:26 by Jamee Puri RN) Hx of fusion of cervical spine Social History (Updated 07/12/22 @ 09:27 by Jamee Puri RN) Smoking Status: Current every day smoker tobacco type: cigarettes packs per day: 1 second hand exposure: No alcohol intake: never substance use type: marijuana, heroin and painkillers current occupational status: employed Travel in the last 8 weeks: None household members: friend(s) housing: apartment current occupation: [employer] current occupational exposures/hazards: No caffeine: Yes Review of Systems Review of Systems Review of systems:: pertinent systems reviewed and negative unless documented below Review of systems (narrative): Review of Systems: General: No recent weight changes, no fever, no sleep disturbances Respiratory: No cough, no shortness of air, no recurring pulmonary infections Cardiovascular/peripheral vascular: No chest pain, no palpitations, no edema, no shortness of breath Gastrointestinal: No new onset incontinence, normal bowel movements reported Genitourinary: No new onset incontinence Musculoskeletal: Low back pain, neck pain, bilateral shoulder pain, right elbow pain Psychiatric: [Normal mood/affect] Neurological: [Denies weakness in extremities], [denies balance issues] Meds Home Medications and Allergies Home Medications Medication Instructions Recorded Confirmed Type albuterol sulfate 90 mcg/actuation 2 puff inhalation Q6H PRN BREATHING 08/23/20 07/12/22 History aerosol inhaler quetiapine 25 mg tablet (Seroquel) 25 mg PO TID PRN anxiety #90 tabs 09/15/21 07/12/22 Rx acetaminophen 300 mg-codeine 30 mg 1 tab PO TID PRN pain #45 tabs
== END | disposition home or self-care (01) ==
PROVIDERS: PCP Family Medicine; Visit Provider Nurse Practitioner Family
DX: M54.50 Low back pain, unspecified (principal); M54.2 Cervicalgia; M25.511 Pain in right shoulder; M25.512 Pain in left shoulder; M25.521 Pain in right elbow
CPT/HCPCS: 99202; G0463

== ENCOUNTER → 2022-07-12 09:34 | Outpatient (CLI) | payer OTHER, SELFPAY ==
--- NOTE | 2022-07-12 09:42 | XR_ITS ---
FINAL REPORT CLINICAL HISTORY: NECK AND LOW BACK PAIN FINDINGS: CERVICAL SPINE Five views demonstrate no acute fracture. There are postoperative changes from anterior and posterior cervical fusion. The hardware is intact. The alignment is within normal limits. There is multi joint degenerative disease, most pronounced at C5-6 and C6-7. The precervical soft tissues are normal. IMPRESSION: Degenerative and postsurgical changes as detailed above. LUMBAR SPINE Five views demonstrate no acute fracture. There is no malalignment. There is multilevel degenerative disease, most pronounced at L5-S1. The paraspinal soft tissues are unremarkable. IMPRESSION: Multilevel degenerative disease. Reviewed, Interpreted and Dictated by Clari Guerrier MD Transcribed by Kaylin Cope Authenticated and [facility]
== END ==
PROVIDERS: PCP Family Medicine; Visit Provider Nurse Practitioner Family
DX: M54.2 Cervicalgia (principal); M54.50 Low back pain, unspecified
CPT/HCPCS: 72084

== ENCOUNTER 2022-08-18 15:02 | Emergency (ER) | payer OTHER, SELFPAY ==
[2022-08-18 15:03] VITALS: BP 118/95; PULSE 85; RESP 17; TEMP 36.7; O2SAT 99; BMI 18.3
--- NOTE | 2022-08-18 15:18 | PC.NURSE ---
patient given ice to put on injury but was unable to tolerate at this time. Pt has right arm elevated on pillow at this time
--- NOTE | 2022-08-18 15:28 | XR_ITS ---
FINAL REPORT CLINICAL HISTORY: fall FINDINGS: Right humerus Two views were obtained. There is prominent soft tissue edema posterior to the olecranon measuring 3 cm in depth. There are multiple calcific or ossific densities posterior to the olecranon, may be related to avulsion injury. IMPRESSION: Concern for avulsion injury. Please correlate clinically. Reviewed, Interpreted and Dictated by Rojelio Sanchez MD Transcribed by Kaylin Cope Authenticated and [facility]
--- NOTE | 2022-08-18 15:28 | XR_ITS ---
FINAL REPORT CLINICAL HISTORY: fall FINDINGS: Right elbow Three views were obtained. There is prominent soft tissue edema posterior to the olecranon measuring 3 cm in depth. There are multiple calcific or ossific densities posterior to the olecranon, may be related to avulsion injury. IMPRESSION: Concern for avulsion injury. Please correlate clinically. Reviewed, Interpreted and Dictated by Rojelio Sanchez MD Transcribed by Kaylin Cope Authenticated and [facility][1]
--- NOTE | 2022-08-18 15:38 | HMH.EDGENADL ---
Discharge Plan Disposition Chief Complaint: Extremity Injury, Upper Prescriptions Prescriptions: No Action Eliquis 5 mg tablet See Rx Instructions .ROUTE .COMPLEX Qty: 180 0RF Dose Instruction: TAKE 1 TABLET BY MOUTH TWICE DAILY Rx Instructions: TAKE 1 TABLET BY MOUTH TWICE DAILY atorvastatin 20 mg tablet See Rx Instructions .ROUTE .COMPLEX Rx Instructions: TAKE ONE TABLET BY MOUTH EVERY NIGHT AT BEDTIME buspirone 10 mg tablet 10 mg PO BID Referrals Follow up/Referrals: Feliberto Shah JR, MD [Physician] - See instructions (Patient has a right elbow hematoma with a small avulsion injury will need follow-up to ensure proper wound healing.) Donte Grimes MD [Primary Care Provider] - See instructions Clinical Impressions Clinical Impression: Traumatic hematoma of elbow, Avulsion injury of right elbow region Discharge ED Provider: Mychal Deng General Adult HPI General Chief complaint: Extremity Injury, Upper Stated complaint: ao [id number] fel r arm Time Seen by Provider: 08/18/22 15:38 History of Present Illness HPI narrative: 52-year-old male presents to the emergency department with right elbow pain status post mechanical fall. States that he is just clumsy and that he fell over his dog's landing directly onto his right elbow with an adducted and flexed position. States he has had significant swelling over the dorsal aspect of his right arm since that time. As such she has tightness and is unable to fully extend his arm since that time but has no other weakness or sensory loss distal to the elbow. States that he has had a gout flare the last several weeks already had some elbow pain and swelling prior to this injury but that it has worsened since the fall today. Denies any injury to his head neck chest abdomen pelvis or other long bones. Related Data Home Medications Medication Instructions Recorded Confirmed atorvastatin 20 mg tablet See Rx Instructions .Route 07/12/22 07/26/22 .COMPLEX Cholesterol buspirone 10 mg tablet 10 mg PO BID MOOD 07/12/22 07/26/22 Previous Rx's Medication Instructions Recorded apixaban 5 mg tablet (Eliquis) See Rx Instructions .Route 07/20/22 .COMPLEX #180 tabs Allergies Allergy/AdvReac Type Severity Reaction Status Date / Time No Known Allergies Allergy Verified 07/26/22 09:10 [facility] Disclaimer: The information contained in this section may have been updated after the patient was seen, as this information can be updated by other users. Medical History CAD (coronary artery disease) Gout HLD (hyperlipidemia) Surgical History Hx of fusion of cervical spine Social History Smoking Status: Never smoker second hand exposure: No alcohol intake: never substance use type: marijuana, heroin and painkillers current occupational status: employed Travel in the last 8 weeks: None household members: friend(s) housing: apartment current occupation: [employer] current occupational exposures/hazards: No caffeine: Yes ROS Obtained: Yes All systems reviewed & no additional complaints except as documented Physical Exam General General appearance: alert and in no apparent distress Respiratory Respiratory exam: Present normal lung sounds bilaterally and respiratory distress Cardiovascular Cardiovascular exam: Present regular rate; Absent tachycardia Extremities Exam Extremities exam: Present other (Significant soft tissue swelling over the olecranon on the right elbow arm is in a flexed position difficulty with extension due to swelling he does have significant tenderness palpation of this region as well in the distal humerus and proximal radial and ulnar areas normal median ulnar radial nerve) Neurological Exam Neurological exam: Present marino
[2022-08-18 16:58] VITALS: BP 120/86; PULSE 88; RESP 19; TEMP 36.7; O2SAT 99
== END 2022-08-18 17:04 | disposition home or self-care (01) ==
PROVIDERS: Emergency Provider Student in an Organized Health Care Education/Training Program; PCP Family Medicine
DX: S42.431A Displaced fracture (avulsion) of lateral epicondyle of right humerus, initial encounter for closed fracture (principal); S50.01XA Contusion of right elbow, initial encounter; W01.10XA Fall on same level from slipping, tripping and stumbling with subsequent striking against unspecified object, initial encounter
CPT/HCPCS: 73060; 73080; 99284

== ENCOUNTER 2022-08-23 17:15 | Inpatient (IN) | payer OTHER, SELFPAY ==
[2022-08-23] VITALS (46 sets, daily range): BP systolic 66–139; BP diastolic 40–96; PULSE 75–158; RESP 16–27; TEMP 36.5–38.5; O2SAT 95–100; BMI 18.3
--- NOTE | 2022-08-23 17:48 | ECG_ITS ---
APPROVED REPORT Exam: Resting ECG HR:164 bpm ECG Measurements Heart Rate 164 AXES QRSd 82 QRS 62 QT 317 T 83 QTc 407 Conclusion Sinus Tachycardia with atrial abnormality NONSPECIFIC ST & T-WAVE ABNORMALITY CRITICAL TEST RESULT WARNING: DATA QUALITY MAY AFFECT INTERPRETATION UNCONFIRMED REPORT Electronically signed by : Nabil Hendrix MD 08/23/2022 23:04:42
--- NOTE | 2022-08-23 17:56 | XR_ITS ---
PROCEDURE INFORMATION: Exam: XR Chest Exam date and time: 08/23/2022 6:30 PM Age: 52 years old Clinical indication: Sternal or substernal pain; Additional info: Tachycardia TECHNIQUE: Imaging protocol: Radiologic exam of the chest. Views: 1 view. COMPARISON: CR XR CHEST PORTABLE 05/09/2020 10:13 AM FINDINGS: Tubes, catheters and devices: Stent/catheter device projects over the heart, new since most recent available chest imaging performed on 05/09/2020, presumably a cardiac stent. Lungs: No acute airspace consolidation. No appreciable pulmonary edema. Pleural spaces: No pleural effusion. No pneumothorax. Heart/Mediastinum: Cardiomediastinal silhouette is otherwise unchanged. Bones/joints: No evidence of acute osseous abnormality. Interval spinal fixation noted with hardware in place. IMPRESSION: 1. No evidence of acute cardiopulmonary disease. 2. Stent/catheter device projects over the heart, new since most recent available chest imaging performed on 05/09/2020, presumably a cardiac stent. Cannot exclude retained central venous catheter segment on single AP image provided. Please correlate with patient history.
[2022-08-23 18:13] LABS: Basophils # 0.1 K/mm3 (0-0.2); Basophils % 0.3 % (0.1-2.0); Eosinophils # 0.2 K/mm3 (0.0-0.4); Eosinophils % 0.6 % (0.1-12.0); Hematocrit 48.4 % (42.0-52.0); Hemoglobin 15.3 g/dL (14.1-18.0); Lymphocytes # 0.9 K/mm3 (0.7-4.5); Mean Corpuscular HGB Conc 31.6 g/dL (31.8-35.4); Mean Corpuscular Hemoglobin 30.4 pg (27.0-31.2); Mean Corpuscular Volume 96.1 fl (80-94); Mean Platelet Volume 10.1 fl (7.4-10.4); Monocytes # 0.5 K/mm3 (0.1-1.0); Monocytes % 1.7 % (1.7-9.3); Neutrophils # 27.6 K/mm3 (1.8-7.8); Neutrophils % 94.4 % (37.0-80.0); Platelet Count 202 K/mm3 (142-424); Red Blood Count 5.03 M/mm3 (4.60-6.20); Red Cell Distribution Width 13.7 % (11.5-17.5); White Blood Count 29.2 K/mm3 (4.8-10.8)
[2022-08-23 18:26] LABS: Alanine Aminotransferase 45 U/L (12-78); Albumin Level 4.5 g/dl (3.5-5.0); Albumin/Globulin Ratio 1.2 (1.1-1.8); Alkaline Phosphatase 132 U/L (38-126); Anion Gap 27.1 mEq/L (5-15); Aspartate Amino Transferase 82 U/L (17-59); Bilirubin,Total 1.3 mg/dl (0.2-1.3); Blood Urea Nitrogen 17 mg/dl (9-20); Calcium 8.7 mg/dl (8.4-10.2); Carbon Dioxide 16 mmol/L (22.0-30.0); Chloride 92 mmol/L (98-107); Creatinine Clearance Estimated 54 mL/min (50-200); Estimated Glomerular Filt Rate 64 ml/min (>60); GFR (African American) 77 ML/MIN (>60); Globulin 3.8 g/dL (1.3-3.2); Glucose 130 mg/dl (74-100); Potassium 4.1 mmoL/L (3.5-5.1); Sodium 131 mmol/L (136-145); Total Protein,Serum 8.3 g/dl (6.3-8.2)
--- NOTE | 2022-08-23 18:30 | PC.NURSE ---
cardizem drip increased to 10 ml/hr
[2022-08-23 18:34] LABS: MANUAL DIFFERENTIAL MANUAL DIFFERENTIAL (MANUAL DIFF)
[2022-08-23 18:38] LABS: NT Pro Brain Natriuretic Pep. 839 pg/mL (0-125); Troponin I 0.04 ng/ml (0.00-0.034)
--- NOTE | 2022-08-23 19:07 | CT_ITS ---
PROCEDURE INFORMATION: Exam: CTA Chest With Contrast Exam date and time: 08/23/2022 8:00 PM Age: 52 years old Clinical indication: Other: Tachycardia, valve vegetations TECHNIQUE: Imaging protocol: Computed tomographic angiography of the chest with contrast. 3D rendering (Not supervised by radiologist): MIP and/or 3D reconstructed images were created by the technologist. Radiation optimization: All CT scans at this facility use at least one of these dose optimization techniques: automated exposure control; mA and/or kV adjustment per patient size (includes targeted exams where dose is matched to clinical indication); or iterative reconstruction. Contrast material: ISOVUE; Contrast volume: 70 ml; Contrast route: INTRAVENOUS (IV); REPORTING DATA: Count of CT and Cardiac NM exams in prior 12 months: This patient has received [address] and 0 known cardiac nuclear medicine studies in the 12 months prior to the current study. COMPARISON: CR XR CHEST PORTABLE 08/23/2022 6:30 PM FINDINGS: Tubes, catheters and devices: Retained central venous catheter fragment extending from the right lateral margin of the superior cavoatrial junction, through the tricuspid valve with tip in the apex of the right ventricle. Pulmonary arteries: No evidence of pulmonary embolism. Aorta: No aortic dissection or aneurysm. Lungs: Mild paraseptal and centrilobular emphysematous changes. No evidence of acute airspace consolidation. No appreciable pulmonary edema. Calcified pulmonary granuloma in the right lower lobe compatible with chronic sequelae of prior granulomatous disease. Pleural spaces: No pneumothorax. No pleural effusion. Heart: No cardiomegaly. No significant pericardial effusion. Lymph nodes: Calcified lymph nodes, compatible with chronic sequelae of prior granulomatous disease. No pathologically enlarged lymph nodes by CT criteria. Intraperitoneal space: No emergent findings or suspicious mass lesions in the visualized upper abdomen. Bones/joints: Post-operative changes of posterior cervicothoracic spinal fixation. Hardware appears intact. Soft tissues: Unremarkable. IMPRESSION: 1. No evidence of pulmonary embolism. 2. Retained central venous catheter fragment extending from the right lateral margin of the to the apex of the right ventricle. 3. Mild emphysema. 4. Additional non-acute ancillary findings are detailed above. COMMENTS: In the absence of a history or active diagnosis of lung cancer, it is recommended that this patient with emphysema be evaluated for enrollment in a low dose CT lung cancer screening program.
--- NOTE | 2022-08-23 19:09 | HMH.EDGENADL ---
Discharge Plan Disposition Patient Disposition: Admitted As Inpatient Prescriptions Prescriptions: No Action atorvastatin 20 mg tablet See Rx Instructions .ROUTE .COMPLEX Rx Instructions: TAKE ONE TABLET BY MOUTH EVERY NIGHT AT BEDTIME buspirone 10 mg tablet 10 mg PO BID Eliquis 5 mg tablet See Rx Instructions .ROUTE .COMPLEX Rx Instructions: TAKE 1 TABLET BY MOUTH TWICE DAILY Referrals Follow up/Referrals: Donte Grimes MD [Primary Care Provider] - See instructions Clinical Impressions Clinical Impression: Atrial fibrillation with rapid ventricular response, Acute non-ST elevation myocardial infarction (NSTEMI), Severe sepsis with acute organ dysfunction, Septic shock, Foreign body in heart, Olecranon bursitis Discharge ED Provider: Matthias Rodríguez General Adult HPI <Matthias Rodríguez DO - Last Filed: 08/23/22 19:56> General Chief complaint: PAIN Stated complaint: R elbow pain Time Seen by Provider: 08/23/22 17:50 Mode of Arrival: Wheelchair Source of Information: Patient and Relative Limitations: No Limitations Description of Symptoms (Recalled from ER Triage Doc. by RN): pt comes in with c/o right elbow pain. pt hit his elbow on sunday. pt does have gout hx. elbow is bleeding due to pt lancing it himself yesterday History of Present Illness HPI narrative: 52yo M presents to the ER initially secondary to right elbow pain. Reports he hit his elbow on Sunday and believes he has gout. Patient reports he lanced his elbow yesterday and had copious purulent discharge. At triage the patient noted to have a heart rate of 172. Patient denied chest pain or shortness of breath but endorsed that he does not feel well. He denies a history of A-fib. He does have a history of drug abuse and cardiac vegetations. Known to have valvular pathology but was not a candidate for replacement/repair secondary to his drug abuse. States he has not taken his medication, to include apixaban, for 2 to 3 days. Denies fever. Related Data Home Medications Medication Instructions Recorded Confirmed atorvastatin 20 mg tablet See Rx Instructions .Route 07/12/22 08/24/22 .COMPLEX Cholesterol buspirone 10 mg tablet 10 mg PO BID MOOD 07/12/22 08/24/22 apixaban 5 mg tablet (Eliquis) See Rx Instructions .Route 08/24/22 08/24/22 .COMPLEX unsure Allergies Allergy/AdvReac Type Severity Reaction Status Date / Time No Known Allergies Allergy Verified 07/26/22 09:10 <Magdi VARELA)MD - Last Filed: 08/24/22 03:26> History of Present Illness Severity: severe PFSH <Matthias Rodríguez DO - Last Filed: 08/23/22 19:56> PFSH Disclaimer: The information contained in this section may have been updated after the patient was seen, as this information can be updated by other users. Medical History CAD (coronary artery disease) Gout HLD (hyperlipidemia) Surgical History Hx of fusion of cervical spine Social History Smoking Status: Current every day smoker tobacco type: cigarettes packs per day: 1 second hand exposure: No alcohol intake: never substance use type: marijuana, heroin and painkillers current occupational status: employed Travel in the last 8 weeks: None household members: friend(s) housing: apartment current occupation: [employer] current occupational exposures/hazards: No caffeine: Yes <Matthias Rodríguez DO - Last Filed: 08/23/22 19:56> ROS Obtained: Yes Systems reviewed as appropriate & no additional complaints except as documented Physical Exam <Matthias Rodríguez DO - Last Filed: 08/23/22 19:56> General General appearance: alert and in distress (Mild to moderate) Comment: thin Head Head exam: atraumatic Neck Neck exam: Present trachea midline Chest Chest inspection: Present symmetric chest wall rise Res
[2022-08-23 19:20] LABS: Lymphocytes % 7 % (10-50); Monocytes % 4 % (2-9); Neutrophils % 89 % (42-76); Total Cells Counted 100
[2022-08-23 19:21] LABS: Platelet Estimate Normal; RBC Morphology Normal
[2022-08-23 19:23] LABS: Coronavirus 19, PCR Not Detected (NotDetected); Influenza A, PCR Not Detected (NotDetected); Influenza B, PCR Not Detected (NotDetected)
--- NOTE | 2022-08-23 19:32 | PC.NURSE ---
Pt right elbow oozing, wrapped with 4 x [address] Rodríguez aware
--- NOTE | 2022-08-23 19:47 | CT_ITS ---
PROCEDURE INFORMATION: Exam: CT Right Upper Extremity With Contrast, Elbow Exam date and time: 08/23/2022 8:12 PM Age: 52 years old Clinical indication: Other: Septic joint TECHNIQUE: Imaging protocol: Computed tomography of the right upper extremity with contrast. Exam focused on the elbow. 3D rendering (Not supervised by radiologist): MIP and/or 3D reconstructed images were created by the technologist. Radiation optimization: All CT scans at this facility use at least one of these dose optimization techniques: automated exposure control; mA and/or kV adjustment per patient size (includes targeted exams where dose is matched to clinical indication); or iterative reconstruction. Contrast material: ISOVUE; Contrast volume: 75 ml; Contrast route: IV; REPORTING DATA: Count of CT and Cardiac NM exams in prior 12 months: This patient has received [address] and 0 known cardiac nuclear medicine studies in the 12 months prior to the current study. COMPARISON: CR XR ELBOW RT MIN 3V 08/18/2022 3:36 PM FINDINGS: Bones/joints: Few amorphous punctate hyperdensities are seen in and around the fluid collection, some of which appear consistent with calcific tendinitis. Cannot entirely exclude foreign body. No acute fracture or malalignment. No evidence of cortical erosion. No significant elbow joint effusion. Soft tissues: Focal fluid collection surrounded by extensive soft tissue edema centered in the subcutaneous soft tissues overlying the olecranon with loculated intramuscular component extending into the triceps. Lungs: No evidence of interstitial subcutaneous emphysema. IMPRESSION: 1. Septic olecranon bursitis with likely intramuscular abscess extending into the adjacent triceps. No evidence of septic elbow joint. 2. No convincing evidence of acute osteomyelitis, noting MRI is more sensitive in detecting early osteomyelitis. 3. Few amorphous punctate hyperdensities are seen in and around the fluid collection overlying the olecranon, some of which appear consistent with calcific tendinitis. Cannot entirely exclude foreign body.
[2022-08-23 20:00] LABS: Lactic Acid 2.3 mmol/L (0.7-2.1)
--- NOTE | 2022-08-23 20:47 | ECG_ITS ---
APPROVED REPORT Exam: Resting ECG HR:96 bpm ECG Measurements Heart Rate 96 AXES HI 111 P 60 QRSd 89 QRS 62 QT 330 T 58 QTc 384 Conclusion SINUS RHYTHM WITH SHORT HI INTERVAL POSSIBLE RIGHT VENTRICULAR CONDUCTION DELAY [RSR (QR) IN V1/V2] BORDERLINE ECG UNCONFIRMED REPORT Electronically signed by : Nabil Hendrix MD 08/25/2022 02:55:07
--- NOTE | 2022-08-23 20:50 | PC.NURSE ---
cardiazem stop @ this time per MD order. ekg performed sinus rhythm
[2022-08-23 21:26] LABS: Troponin I 0.05 ng/ml (0.00-0.034)
--- NOTE | 2022-08-23 21:48 | PC.NURSE ---
valentin KIM MD at this time
--- NOTE | 2022-08-23 21:53 | PC.NURSE ---
[facility] will call back
--- NOTE | 2022-08-23 22:15 | PC.NURSE ---
pt placed on waiting list @ [facility]
--- NOTE | 2022-08-23 22:23 | PC.NURSE ---
spoke to [facility] about possible transfer. they state pt will be placed on waiting list
--- NOTE | 2022-08-23 22:26 | PC.NURSE ---
called [facility] they will call us back, they have no beds at this time
--- NOTE | 2022-08-23 22:33 | PC.NURSE ---
Called [facility] they are at capacity at this time
--- NOTE | 2022-08-23 22:59 | PC.NURSE ---
Dr. Dickye speaking with ER at [facility] at this time
--- NOTE | 2022-08-23 23:31 | PC.NURSE ---
levophed increased 10mcg
[2022-08-23 23:42] LABS: Reflex Lactic Add Lactic Reflex
[2022-08-24] VITALS (39 sets, daily range): BP systolic 78–117; BP diastolic 51–75; PULSE 63–91; RESP 14–25; TEMP 36.4; O2SAT 96–100; BMI 18.1
--- NOTE | 2022-08-24 00:08 | PC.NURSE ---
levophed increased to 12mcg
[2022-08-24 00:26] LABS: Lactic Acid Follow Up (RFLX 1) 2.1 mmol/L (0.7-2.1)
--- NOTE | 2022-08-24 01:20 | PC.NURSE ---
called and spoke with [facility] and received notification of no available beds at this time but will remain on the list and we will be updated carol. patient continues iv fluids, and levophed.
[2022-08-24 01:28] LABS: Reflex Lactic (2 hrs) Add Lactic Reflex
--- NOTE | 2022-08-24 01:29 | PC.NURSE ---
updated daughter who is sitting at bedside to poc. is agreeable and appears appreciative
[2022-08-24 02:42] LABS: Lactic Acid Follow up (RFLX 2) 2.2 mmol/L (0.7-2.1)
--- NOTE | 2022-08-24 02:47 | PC.NURSE ---
levophed increased to 14mcg
[2022-08-24 03:06] LABS: Microscopic, Urine URINE MICROSCOPIC (MICROSCOPIC)
[2022-08-24 03:20] LABS: Appearance,Urine CLEAR (Clear); Bilirubin,Urine Negative (Negative); Blood, Urine TRACE-I (Negative); Color,Urine YELLOW (Yellow); Glucose,Urine (UA) Negative (Negative); Ketones,Urine Negative (Negative); Leukocyte Esterase,Urine Negative (Negative); Nitrate,Urine Negative (Negative); Protein,Urine Negative (Negative); Specific Gravity, Urine <= 1.005 (1.005-1.030); Urobilinogen,Urine 0.2 EU/dl (0.2)
[2022-08-24 03:41] LABS: Bacteria,Urine 1+ /lpf; Mucus,Urine 1+ /lpf; Squamous Epithelial Cell,Urine Occasional #/hpf (0-5)
--- NOTE | 2022-08-24 03:55 | EXP.HP ---
History of Present Illness *Admission Date: 08/24/22 *Reason for visit:: Right Elbow Pain *History of present illness: Mr. Coleman is a 52-year-old male with a past medical history of IVDU, history of right elbow abscess due to IVDU and need for I/D of the area dating back to 10/2017, History of Cardiac Vegetation on chronic anticoagulation and history of COVID in 2019 requiring a long hospitalization and course. He presented to [facility] through the ER due to right elbow pain, weakness, and body aches since reporting falling on the area on 08/18. He reports the fall in which he accidentally tripped and was seen in the ER on 08/18. He reports that since that time the elbow became swollen and painful. He reports that he lanced the area himself and got a lot of copious drainage. He reports since that time he has experienced body aches and chills and has not felt well. He came back into the ER today for evaluation. In the ER, he was found to have a HR in the 170 range. EKG showed Atrial Fibrillation with a rate of 164. He was given a Cardizem bolus and drip that resulted in systolic blood pressures going into the 70 range. CBC showed a WBC of 29.2, CMP showed a Co2 16, Anion Gap was 27.1. Lactic Acid was 2.3. Troponin 0.05, BNP was 839. CT of the elbow showed a focal fluid collection surrounded by extensive soft tissue edema centered in the subcutaneous soft tissues overlying the olecranon with loculated intramuscular component extending into the triceps. CTA of the chest showed a retained central venous catheter fragment extending from the right lateral margin of the superior cavoatrial junction through the tricuspid valve with the tip in the aprex of the right ventricle. In the ER the patient had blood cultures x 2 drawn, received 3L of Normal Saline per Sepsis protocol, was placed on Cardizem for atrial fibrillation, converted to NSR, Cardizem was transitioned to off and started on Levophed for hypotension, received Vancomycin and Cefepime for Sepsis. Discussed case in detail with ER Physician Dr. Dickey. The patient is on the wait list for [facility] and [facility]. The patient will be admitted to the facility while we await a bed at a higher level facility. Admitting diagnosis will be: Septic Shock, Atrial Fibrillation with Rapid Ventricular Response, High Anion Gap Metabolic Acidosis, Right Elbow Loculated Effusion, Retained Central Venous Catheter in the Heart [facility] Disclaimer: The information contained in this section may have been updated after the patient was seen, as this information can be updated by other users. Medical History CAD (coronary artery disease) COVID Gout HLD (hyperlipidemia) IVDU (intravenous drug user) Surgical History Hx of fusion of cervical spine Social History Smoking Status: Current every day smoker tobacco type: cigarettes packs per day: 1 second hand exposure: No alcohol intake: never substance use type: marijuana, heroin and painkillers current occupational status: employed Travel in the last 8 weeks: None household members: friend(s) housing: apartment current occupation: [employer] current occupational exposures/hazards: No caffeine: Yes Review of Systems Review of Systems Review of systems:: pertinent systems reviewed and negative unless documented below Constitutional Constitutional: Reports body ache(s), Reports chills and Reports fatigue Eyes Eyes: Reports system reviewed and no additional complaints, except as documented ENT Ears, Nose, Mouth, and Throat: Reports system reviewed and no additional complaints, except as documented *Cardiovascular Cardiovascular: Reports dyspnea and Reports irregular heart rhythm *Respiratory Respiratory: Reports system reviewed and no additional complaints, except as documented and
[2022-08-24 04:08] LABS: Amphetamine/Metha Screen,Urine Negative ng/ml (<1000); Benzodiazepines Screen,Urine Negative ng/ml (<200)
[2022-08-24 04:09] LABS: Barbiturates Screen,Urine Negative ng/ml (<200); Cannabinoid Screen,Urine Positive ng/ml (<50)
[2022-08-24 04:10] LABS: Cocaine Screen,Urine Negative ng/ml (<300)
[2022-08-24 04:11] LABS: Methadone Screen,Urine Negative ng/ml (<300)
[2022-08-24 04:12] LABS: Opiate Screen,Urine Negative ng/ml (<300)
[2022-08-24 04:13] LABS: Phencyclidine Screen,Urine Negative ng/ml (<25)
--- NOTE | 2022-08-24 04:23 | PC.NURSE ---
pt admitted to 218 from ER; upon arrival bp 117/71, decreased levo drip to 12mcg (from 14 upon arrival)
--- NOTE | 2022-08-24 05:11 | PC.NURSE ---
clarified IVF order from [facility] pt to have LR at 125mL/hr
--- NOTE | 2022-08-24 05:54 | EXP.DC.SUM ---
General Admission date:: 08/24/22 Discharge date: 08/24/22 HPI HPI HPI: Mr. Coleman is a 52-year-old male with a past medical history of IVDU, history of right elbow abscess due to IVDU and need for I/D of the area dating back to 10/2017, History of Cardiac Vegetation on chronic anticoagulation and history of COVID in 2019 requiring a long hospitalization and course. He presented to [facility] through the ER due to right elbow pain, weakness, and body aches since reporting falling on the area on 08/18. He reports the fall in which he accidentally tripped and was seen in the ER on 08/18. He reports that since that time the elbow became swollen and painful. He reports that he lanced the area himself and got a lot of copious drainage. He reports since that time he has experienced body aches and chills and has not felt well. He came back into the ER today for evaluation. In the ER, he was found to have a HR in the 170 range. EKG showed Atrial Fibrillation with a rate of 164. He was given a Cardizem bolus and drip that resulted in systolic blood pressures going into the 70 range. CBC showed a WBC of 29.2, CMP showed a Co2 16, Anion Gap was 27.1. Lactic Acid was 2.3. Troponin 0.05, BNP was 839. CT of the elbow showed a focal fluid collection surrounded by extensive soft tissue edema centered in the subcutaneous soft tissues overlying the olecranon with loculated intramuscular component extending into the triceps. CTA of the chest showed a retained central venous catheter fragment extending from the right lateral margin of the superior cavoatrial junction through the tricuspid valve with the tip in the aprex of the right ventricle. In the ER the patient had blood cultures x 2 drawn, received 3L of Normal Saline per Sepsis protocol, was placed on Cardizem for atrial fibrillation, converted to NSR, Cardizem was transitioned to off and started on Levophed for hypotension, received Vancomycin and Cefepime for Sepsis. Discussed case in detail with ER Physician Dr. Dickey. The patient is on the wait list for [facility] and [facility]. The patient will be admitted to the facility while we await a bed at a higher level facility. Admitting diagnosis will be: Septic Shock, Atrial Fibrillation with Rapid Ventricular Response, High Anion Gap Metabolic Acidosis, Right Elbow Loculated Effusion, Retained Central Venous Catheter in the Heart Hospital Course Hospital Course Hospital Course: 52-year-old male with history of IVDU, heroin, history of Cardiac Vegetation, was not a candidate for valve replacement due to ongoing IVDU, on chronic anticoagulation, history of COVID and chronic tobacco abuse presents due to right elbow pain ongoing since a fall on 08/18 that has resulted in swelling and drainage to the area - Septic Shock (POA) Sepsis Criteria met on admission: Temperature 101.3, HR 158, RR 23, WBC 29.2, Suspected source:? Elbow Severe Sepsis criteria:? BP drop <90 Septic Shock criteria received 3L NS in ER remained hypotensive, Levophed started in the ER Blood cultures x 2 obtained in the ER Started on Vancomycin and Cefepime, will continue Wound cultures ordered History of IVDA, urine drug screen ordered CT of the elbow cannot fully exclude foreign body with focal fluid collection overlying the olecranon with loculated intramuscular component extending into the tricep Accepted at for further evaluation, appreciate help in care of the patient - Atrial Fibrillation with Rapid Ventricular Response Received Cardizem in the ER with conversion to NSR Most likely cause sepsis, denies a history of Atrial Fibrillation Was on DOAC had not taken for a couple days prior to presentation, appears to be due to valvular pathology Will continue - High Anion Gap Metabolic Acidosis Continue to treat for Sepsis - Effusion Right Elbow ER Physician spoke with Orthopaedics at transferring facility, awaiting bed - Displaced Central Veno
[2022-08-24 06:23] LABS: Chloride 111 mmol/L (98-107); Potassium 4.4 mmoL/L (3.5-5.1); Sodium 135 mmol/L (136-145)
[2022-08-24 06:26] LABS: Alanine Aminotransferase 26 U/L (12-78); Albumin Level 2.5 g/dl (3.5-5.0); Albumin/Globulin Ratio 0.9 (1.1-1.8); Alkaline Phosphatase 61 U/L (38-126); Anion Gap 9.4 mEq/L (5-15); Aspartate Amino Transferase 56 U/L (17-59); Bilirubin,Total 0.7 mg/dl (0.2-1.3); Blood Urea Nitrogen 17 mg/dl (9-20); Carbon Dioxide 19 mmol/L (22.0-30.0); Creatinine Clearance Estimated 80 mL/min (50-200); Estimated Glomerular Filt Rate 102 ml/min (>60); GFR (African American) 123 ML/MIN (>60); Globulin 2.9 g/dL (1.3-3.2); Total Protein,Serum 5.4 g/dl (6.3-8.2)
[2022-08-24 06:27] LABS: Calcium 7.5 mg/dl (8.4-10.2); Glucose 136 mg/dl (74-100)
--- NOTE | 2022-08-24 06:28 | PC.NURSE ---
called report to Pasquale at [facility], [place], [place] [phone], pt to transfer via ambulance to [facility]
[2022-08-24 06:31] LABS: Basophils # 0.1 K/mm3 (0-0.2); Basophils % 0.3 % (0.1-2.0); Eosinophils # 0.1 K/mm3 (0.0-0.4); Eosinophils % 0.5 % (0.1-12.0); Hematocrit 36.9 % (42.0-52.0); Lymphocytes # 0.9 K/mm3 (0.7-4.5); Lymphocytes % 4.1 % (10-50); Mean Corpuscular HGB Conc 32.6 g/dL (31.8-35.4); Mean Corpuscular Hemoglobin 30.6 pg (27.0-31.2); Mean Corpuscular Volume 93.9 fl (80-94); Mean Platelet Volume 10.5 fl (7.4-10.4); Monocytes # 0.8 K/mm3 (0.1-1.0); Monocytes % 3.5 % (1.7-9.3); Neutrophils # 19.7 K/mm3 (1.8-7.8); Neutrophils % 91.6 % (37.0-80.0); Platelet Count 135 K/mm3 (142-424); Red Blood Count 3.93 M/mm3 (4.60-6.20); Red Cell Distribution Width 13.8 % (11.5-17.5); White Blood Count 21.5 K/mm3 (4.8-10.8)
--- NOTE | 2022-08-24 06:51 | PC.NURSE ---
attempted to call pt's daughters to inform them pt transferring to [facility], but no answer on either number and mailbox not set up on Jacquie's number, left message on Mi's number
--- NOTE | 2022-08-24 06:52 | PC.NURSE ---
pt left via EMS to [facility]
--- NOTE | 2022-08-24 06:53 | PC.NURSE ---
notified SHIRA Giordano at [facility] that pt is being transported via ambulance at this time
--- NOTE | 2022-08-24 06:59 | PC.NURSE ---
sent belongings with medication and cell phone with pt to [place], [place]
[2022-08-24 07:46] LABS: MANUAL DIFFERENTIAL MANUAL DIFFERENTIAL (MANUAL DIFF)
[2022-08-24 07:51] LABS: Lymphocytes % 4 % (10-50); Monocytes % 4 % (2-9); Neutrophils % 92 % (42-76); Platelet Estimate Normal; RBC Morphology Normal; Total Cells Counted 100
== END 2022-08-24 06:53 | disposition short-term general hospital (02) | DRG 871 ==
LOC: UTC 17:49 → ER 17:49 → 2ND 08-24 04:35
PROVIDERS: Nurse Practitioner Family; Admitting Provider Internal Medicine Adolescent Medicine; Emergency Provider Family Medicine; PCP Family Medicine; Visit Provider Internal Medicine Adolescent Medicine
DX: A41.9 Sepsis, unspecified organism (principal); I21.4 Non-ST elevation (NSTEMI) myocardial infarction; I33.0 Acute and subacute infective endocarditis; R65.21 Severe sepsis with septic shock; T82.898A Other specified complication of vascular prosthetic devices, implants and grafts, initial encounter; E87.20 Acidosis, unspecified; F17.210 Nicotine dependence, cigarettes, uncomplicated; Z79.899 Other long term (current) drug therapy; R29.6 Repeated falls; I10 Essential (primary) hypertension; Z18.89 Other specified retained foreign body fragments; Z79.01 Long term (current) use of anticoagulants; I48.91 Unspecified atrial fibrillation; M25.422 Effusion, left elbow; Z86.16 Personal history of COVID-19
CPT/HCPCS: 36415; 71045; 71275; 73201; 80053; 80305; 81001; 83605; 83880; 84484; 85007; 85025; 87040; 87077; 87186; 93005; 99291; C9803; J3370; Q9967; U0003; U0005

== ENCOUNTER → 2022-11-01 07:55 | Outpatient (POV) | payer OTHER, SELFPAY ==
[2022-11-01 08:15] VITALS: BP 107/69; PULSE 75; RESP 18; O2SAT 97; BMI 19.1
--- NOTE | 2022-11-01 09:06 | EXP.PAIN.SOA ---
[facility] Pain Management SOAP Note Subjective:: Patient is a pleasant 52-year-old male who presents today for follow-up of x-ray imaging of his cervical and lumbar spine. We are currently treating the patient for right elbow pain, bilateral shoulder pain, low back pain, neck pain. Today he rates his pain an 8 out of 10. Patient states that since our last visit he did have an episode of gout in his elbow back in August that did turn into sepsis where he had to be hospitalized. Patient states he is still recovering from this episode and that he has also had a fall. He states that he did land on his right shoulder and is experiencing pain in this area along with his elbow and neck and back pain. He describes this as an aching, throbbing, sharp pain that is worse with increased activity. He does state that it interferes with his ability to perform activities of daily living such as cooking and cleaning or even simple ambulation. Patient does have a previous history of neck surgery. Patient has tried [id number] medications along with heat and ice and topicals with no additional relief. At her last visit we did send for neurosurgery consult however the patient is unsure whether or not if he was ever contacted by their office. Patient did complete his x-ray imaging. We also prescribed him methocarbamol 500 mg twice a day he states that it may have helped some however since his recent injuries it has not been doing anything additionally. He is requesting something for pain. He has recently been prescribed tramadol 50 mg 3 times a day with a 7-day supply from Dr. Grimes's office. His Jeremy is [phone]. Its been reviewed and appropriate. Review of Systems: General: No recent weight changes, no fever, no sleep disturbances Respiratory: No cough, no shortness of air, no recurring pulmonary infections Cardiovascular/peripheral vascular: No chest pain, no palpitations, no edema, no shortness of breath Gastrointestinal: No new onset incontinence, normal bowel movements reported Genitourinary: No new onset incontinence Musculoskeletal: Neck pain, low back pain, elbow pain, right shoulder pain Psychiatric: [Normal mood/affect] Neurological: [Denies weakness in extremities], [denies balance issues] Objective:: Physical Exam: General: Alert and oriented x3, no acute distress, pleasant and cooperative Lungs: Respirations even and unlabored, symmetrical chest expansion Eyes: PERRL Musculoskeletal: Flexion and extension of cervical, lumbar [spine] somewhat guarded secondary to pain, [antalgic gait noted] Neurological: Speech clear, no gross sensory deficit FINAL REPORT CLINICAL HISTORY: NECK AND LOW BACK PAIN FINDINGS: CERVICAL SPINE? Five views demonstrate no acute fracture.? There are postoperative changes from anterior and posterior cervical fusion.? The hardware is intact.? The alignment is within normal limits.? There is multi joint degenerative disease, most pronounced at C5-6 and C6-7.? The precervical soft tissues are normal. IMPRESSION: Degenerative and postsurgical changes as detailed above.? LUMBAR SPINE? Five views demonstrate no acute fracture.? There is no malalignment.? There is multilevel degenerative disease, most pronounced at L5-S1.? The paraspinal soft tissues are unremarkable.? IMPRESSION:? Multilevel degenerative disease. 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 I have counseled the patient that he may benefit from cervical or lumbar epidurals. Risk and benefits were discussed with the patient however at t
== END | disposition home or self-care (01) ==
PROVIDERS: PCP Family Medicine; Visit Provider Nurse Practitioner Family
DX: M51.16 Intervertebral disc disorders with radiculopathy, lumbar region (principal); M50.10 Cervical disc disorder with radiculopathy, unspecified cervical region; M25.511 Pain in right shoulder; M25.529 Pain in unspecified elbow
CPT/HCPCS: 99212; G0463

== ENCOUNTER → 2022-11-01 08:52 | Outpatient (CLI) | payer OTHER, SELFPAY ==
--- NOTE | 2022-11-01 08:57 | XR_ITS ---
FINAL REPORT CLINICAL HISTORY: RECENT FALL COMPARISON: None FINDINGS: Two views show no evidence of acute displaced fracture or dislocation of the visualized bony architecture. The joint spaces appear normal. IMPRESSION: Unremarkable exam. Reviewed, Interpreted and Dictated by Gregory Jensen MD Transcribed by Barb Gage Authenticated and . [facility]
== END ==
PROVIDERS: PCP Family Medicine; Visit Provider Nurse Practitioner Family
DX: M25.511 Pain in right shoulder (principal); M54.2 Cervicalgia; M54.50 Low back pain, unspecified
CPT/HCPCS: 73030

== ENCOUNTER → 2022-11-17 14:48 | Outpatient (CLI) | payer OTHER, SELFPAY ==
--- NOTE | 2022-11-17 14:50 | MR_ITS ---
FINAL REPORT CLINICAL HISTORY: NECK PAIN BILATERAL ARM AND FINGER NUMBNESS HX OF SURGERY IN 2019 FINDINGS: Multi planar MR imaging was obtained of the cervical spine. Extensive magnetic artifact distorts image field. There is abnormal decreased signal throughout the cervical discs. There is long segment cervical fusion bridging C2-T2. There is interbody fusion graft at the C4-5 level. There is no malalignment. The cervical cord demonstrates normal signal and configuration. C2-C3: There is no evidence of significant disc bulge or protrusion. There is no significant facet hypertrophy. C3-C4: There is mild endplate hypertrophy with mild bilateral neural foraminal narrowing. C4-C5: Interbody fusion graft is present. The neural foramina are adequately patent. C5-C6: Moderate endplate hypertrophy is present with moderate right and mild left neural foraminal narrowing. C6-C7: There is no evidence of significant disc bulge or protrusion. There is no significant facet hypertrophy. C7-T1: There is no evidence of significant disc bulge or protrusion. There is no significant facet hypertrophy. IMPRESSION: Long segment cervical fusion bridging C2-T2. Interbody fusion graft at the C4-5 level. Endplate hypertrophy at C3-4 and C5-6. Reviewed, Interpreted and Dictated by Rojelio Sanchez MD Transcribed by Kaylin Cope Authenticated and [facility]
== END ==
PROVIDERS: PCP Family Medicine; Visit Provider Nurse Practitioner Family
DX: M54.2 Cervicalgia (principal)
CPT/HCPCS: 72141; 76376

== ENCOUNTER → 2022-11-21 12:23 | Outpatient (CLI) | payer OTHER, SELFPAY ==
--- NOTE | 2022-11-21 | CA_ITS ---
APPROVED REPORT Exam: Pharmacologic Technologist: Kayley Roman, Ht: 5 ft 7 in Wt: 123 lbs BSA: 1.64 m2 HR: 67 bpm BP: 122/83 mmHg Rhythm: Normal sinus rhythm Medical History Medical History: Hyperlipidemia Medications: Trazadone,,,,, Atorvastatin,,,,, Buspirone,,,,, Nicotine,,,,, Tramadol,,,,, Acetaminophen,,,,, DulOXETINE,,,,, OxYCODONE,,,,, Methocarbamol,,,,, Apixaban,,,,, Allergies: No known drug allergies Cardiac Risk Factors: Hyperlipidemia, FHX of CAD, Smoking Stress Test Details Test: LEXISCAN HR Resting HR: 70 bpm Max Heart Rate (APMHR): 168 bpm Max HR Achieved: 97 bpm Target HR (85% APMHR): 143 bpm % of APMHR: 58 Recovery HR: 75 bpm BP Resting BP: 122/83 mmHg Max BP: 122/83 mmHg Recovery BP: 108.0/76.0 mmHg ECG Resting ECG: Normal sinus rhythm Stress ECG: No change Arrhythmia: None Recovery ECG: No change Recovery Arrhythmia: None Clinical Exercise duration: 04:01 min Highest Stage Achieved: Exercise capacity: n/a METs Stress ECG Conclusion PT HAD DYSPNEA AND CHEST PAIN NO SIGNIFICANT ST CHANGES WITH PHARMACOLOGIC STRESS TESTING CONCLUSION UNREMARKABLE LEXISCAN STRESS TEST MYOVIEW IMAGES ARE REPORTED SEPARATELY Test Summary REST 01:43 . . 70 . 122/ 83 . . Stage 1 . . . . . . . Myoview Injected Stage 1 01:00 . . 93 . . . . Stage 2 01:00 . . 90 . 109/ 76 . . Stage 3 01:00 . . 86 . 118/ 79 . . Stage 4 01:00 . . 83 . 112/ 75 . . Stage 4 01:01 . . 83 . 112/ 75 . Stop exercise at 04:01 RECOVERY 01:00 . . 78 . 106/ 73 . . RECOVERY 02:00 . . 70 . 112/ 73 . . RECOVERY 02:53 . . 81 . 108/ 76 . . Electronically signed by : Aline Handy, 11/23/2022 00:19:10
--- NOTE | 2022-11-21 12:24 | NM_ITS ---
APPROVED REPORT Exam: Nuclear Stress Test Indication: soa..chest pain..fatigue Patient Location: Outpatient Stress Tech: Kayley Roman NM Tech:Amy CelisRAMSEY RT (R)(N)(M) Ht: 5 ft 7 in Wt: 120 lbs HR: 67 bpm BP: 122/83 mmHg BSA: 1.63 m2 Rhythm: NSR TID: 1.08 BMI: 18.7 History: soa..chest pain..fatigue Procedure: Patient received 0.4 mg of intravenous Lexiscan, resting heart rate 67 bpm, resting blood pressure 122/83 mmHg, with Lexiscan maximum heart rate achieved was 88 bpm which is 85 % of the maximum predicted heart rate and blood pressure was 109/76 mmHg. Cardiac Stress and Resting SPECT Images: Cardiac Stress and Resting SPECT images were obtained using technetium 99m Myoview 31.6 mCi stress and 10.53 mCi at rest. Resting and stress imaging in both supine and prone positions demonstrate large sized, moderate, partially reversible perfusion defect in the inferior and inferior septal LV wall from the base and extending towards the distal inferior wall. There is also a large sized, moderate, predominantly fixed perfusion defect in the mid to distal anterior LV wall with minimal areas of reversibility. Gated imaging demonstrates a mild to moderate reduction in global LV systolic function. There is moderate hypokinesis of the mid anterior LV wall and severe hypokinesis of the basal to mid inferior and inferoseptal LV wall. LVEF is calculated at 40%. Conclusion: Resting and stress imaging in both supine and prone positions demonstrate large sized, moderate, partially reversible perfusion defect in the inferior and inferior septal LV wall from the base and extending towards the distal inferior wall. There is also a large sized, moderate, predominantly fixed perfusion defect in the mid to distal anterior LV wall with minimal areas of reversibility. Gated imaging demonstrates a mild to moderate reduction in global LV systolic function. There is moderate hypokinesis of the mid anterior LV wall and severe hypokinesis of the basal to mid inferior aind inferoseptal LV beasley. LVEF is calculated at 40%. Electronically signed by : Aline Handy, 11/23/2022 00:32:14
== END ==
LOC: RAD 12:24
PROVIDERS: PCP Family Medicine; Visit Provider Physician Assistant
DX: R06.09 Other forms of dyspnea (principal); R53.83 Other fatigue; R07.9 Chest pain, unspecified; E78.5 Hyperlipidemia, unspecified; R78.81 Bacteremia
CPT/HCPCS: 78452; 93017; 93306; A9502; J2785

== ENCOUNTER → 2022-12-27 14:01 | Outpatient (CLI) | payer OTHER, SELFPAY ==
[2022-12-27 18:11] LABS: Opiate Screen,Urine Negative ng/ml (<300)
[2022-12-27 18:12] LABS: Cannabinoid Screen,Urine Positive ng/ml (<50)
[2022-12-27 18:13] LABS: Methadone Screen,Urine Negative ng/ml (<300)
[2022-12-27 18:46] LABS: Amphetamine/Metha Screen,Urine Negative ng/ml (<1000); Barbiturates Screen,Urine Negative ng/ml (<200); Benzodiazepines Screen,Urine Negative ng/ml (<200); Cocaine Screen,Urine Negative ng/ml (<300); Phencyclidine Screen,Urine Negative ng/ml (<25)
== END ==
PROVIDERS: PCP Nurse Practitioner Family; Visit Provider Nurse Practitioner Family
DX: Z79.899 Other long term (current) drug therapy (principal)
CPT/HCPCS: 80305

== ENCOUNTER 2023-01-25 07:20 | Day surgery (SDC) | payer OTHER, SELFPAY ==
[2023-01-25] VITALS (11 sets, daily range): BP systolic 81–113; BP diastolic 56–73; PULSE 58–97; RESP 16–18; O2SAT 93–97; BMI 19.7
--- NOTE | 2023-01-25 | IR_ITS ---
APPROVED REPORT Patient Location: Outpatient PROCEDURES Left heart catheterization Left ventriculogram Selective coronary angiogram INDICATION Known coronary artery disease, Angina pectoris, Abnormal Myoview, Informed consent was obtained prior to the procedure. COMPLICATIONS None Estimated Blood Loss: Less than 10 mls TECHNIQUE One percent lidocaine used to anesthetize the right anterior aspect of the wrist. The right radial artery was accessed via the Seldinger technique. A 6 Kiswahili sheath was placed in the right radial artery. 2.5 mg of Verapamil, 800 mcg of nitroglycerin, 1mg Lidocaine and 5000 U Heparin were given through the arterial sheath. The papa catheter was also used to perform left heart catheterization, left ventriculogram and selective coronary angiogram. At the end of the procedure the sheath was removed good hemostasis was achieved using Traclet band, patient was transferred to the postop holding area in stable condition. ANGIOGRAPHIC RESULTS The left main artery Normal The left anterior descending artery Has proximal 20% stenoses with a mid vessel eccentric 20% stenosis The circumflex artery Nondominant with mild 10% luminal irregularities The right coronary artery Dominant normal The KHAN ventriculogram reveals Normal 60% The left ventricular end-diastolic pressure 15 mmHg IMPRESSION Mild nonflow limiting coronary artery disease Normal ejection fraction Normal LVEDP PLAN 1. Continue medical management Electronically signed by : Giacomo Arguelles MD 01/25/2023 10:01:46
[2023-01-25 08:08] LABS: Basophils # 0.1 K/mm3 (0-0.2); Basophils % 0.7 % (0.1-2.0); Eosinophils # 0.4 K/mm3 (0.0-0.4); Eosinophils % 3.3 % (0.1-12.0); Hemoglobin 15.4 g/dL (14.1-18.0); Lymphocytes # 4.1 K/mm3 (0.7-4.5); Lymphocytes % 34.4 % (10-50); Mean Corpuscular HGB Conc 32.8 g/dL (31.8-35.4); Mean Corpuscular Hemoglobin 30.8 pg (27.0-31.2); Mean Corpuscular Volume 93.8 fl (80-94); Mean Platelet Volume 9.3 fl (7.4-10.4); Monocytes # 0.5 K/mm3 (0.1-1.0); Monocytes % 4.5 % (1.7-9.3); Neutrophils # 6.8 K/mm3 (1.8-7.8); Neutrophils % 57.1 % (37.0-80.0); Platelet Count 234 K/mm3 (142-424); Red Blood Count 5.01 M/mm3 (4.60-6.20); Red Cell Distribution Width 14.2 % (11.5-17.5); White Blood Count 11.9 K/mm3 (4.8-10.8)
[2023-01-25 08:28] LABS: Blood Urea Nitrogen 12 mg/dl (9-20); Calcium 9.4 mg/dl (8.4-10.2); Carbon Dioxide 25 mmol/L (22.0-30.0); Chloride 106 mmol/L (98-107); Creatinine Clearance Estimated 70 mL/min (50-200); Estimated Glomerular Filt Rate 78 ml/min (>60); GFR (African American) 95 ML/MIN (>60); Glucose 91 mg/dl (74-100); Sodium 143 mmol/L (136-145)
== END 2023-01-25 12:46 | disposition home or self-care (01) ==
PROVIDERS: PCP Nurse Practitioner Family; Visit Provider Internal Medicine
DX: I25.118 Atherosclerotic heart disease of native coronary artery with other forms of angina pectoris (principal); E11.9 Type 2 diabetes mellitus without complications; I10 Essential (primary) hypertension; E78.5 Hyperlipidemia, unspecified; Z79.899 Other long term (current) drug therapy; Z79.4 Long term (current) use of insulin; R94.39 Abnormal result of other cardiovascular function study
CPT/HCPCS: 80048; 85025; 93458; 99152; C1725; C1769; J1644; Q9967